=== PATIENT | female | born 1955 | race African-American/Black ===

== ENCOUNTER 2017-08-02 14:32 | Inpatient (IN) | payer MEDICAID ==
[~2017-08-02] VITALS: Ht 160 cm; Wt 72.6 kg
[~2017-08-02 14:32] MED LIST: ALBUTEROL MDI IH; ASPI-986 PO; MONT10TA21 PO
[2017-08-02] MEDS ORDERED: IPRATROPIUM BROMIDE (0.02%) 0.5MG/2.5ML NEB HHN STA (18:34)
[2017-08-02] MEDS ORDERED: ALBUTEROL (0.083%) 2.5MG/3ML NEB HHN STA (18:34)
[2017-08-02 19:08] LABS: HEMATOCRIT. 35.4 % (36.0-48.0); HEMOGLOBIN. 11.3 g/dL (12.0-16.0); MEAN CORPUSCULAR VOLUME 84.3 fL (81.0-99.0); MEAN PLATELET VOLUME 8.8 fl (7.4-10.4); PLATELET 324 x1000/uL (130-400); RED CELL DISTRIBUTION WIDTH 20.1 % (11.6-14.6)
[2017-08-02 19:10] LABS: CHLORIDE 101 mEq/L (98-107)
[2017-08-02 19:16] LABS: CARBON DIOXIDE 35 mEq/L (21-32)
[2017-08-02 19:20] LABS: TROPONIN I < 0.02 ng/mL (0.00-0.04)
[2017-08-02] MEDS ORDERED: METHYLPREDNISOLONE SOD SUCC 125 MG/2 ML VIAL IV STA (19:45)
[2017-08-02] MEDS ORDERED: ALBUTEROL (0.083%) 2.5MG/3ML NEB HHN SCH (20:00)
[2017-08-02 20:50] LABS: PLATELET ESTIMATE NORMAL
[2017-08-02 23:00] VITALS: BP 112/40
[2017-08-02] MEDS ORDERED: ACETAMINOPHEN 325MG TABLET PO PRN (23:00)
[2017-08-02] MEDS ORDERED: HYDROCODONE/ACETAMINOPHEN 5/325MG TABLET PO PRN (23:00)
[2017-08-02] MEDS ORDERED: DOCUSATE SODIUM 100MG CAPSULE PO PRN (23:00)
[2017-08-02] MEDS ORDERED: ONDANSETRON HCL 4MG/2ML VIAL IV PRN (23:00)
[2017-08-02] MEDS ORDERED: POTASSIUM CHLORIDE 20MEQ TABLET SR PO SCH (23:00)
[2017-08-02] MEDS ORDERED: CLONIDINE 0.1MG TABLET PO PRN (23:00)
[2017-08-02] MEDS ORDERED: MAGNESIUM/ALUMINUM HYDROXIDE/SIMETHICONE 30ML UDC PO PRN (23:00)
[2017-08-02 23:46] LABS: CHLORIDE 103 mEq/L (98-107)
[2017-08-02 23:53] LABS: CARBON DIOXIDE 34 mEq/L (21-32)
[2017-08-03] MEDS ORDERED: DEXTROSE 50% WATER 50ML SYRINGE IV PRN (00:30)
[2017-08-03 00:40] LABS: BG BASE EXCESS 7.5 mmol/L (-2.0-2.0); BG CARBOXYHEMOGLOBIN 1.8 % (0.5-1.5); BG DEOXYHEMOGLOBIN 4.2 % (0.0-5.0); BG FRACTION INSPIRED OXYGEN 28; BG METHEMOGLOBIN 0.2 % (0.0-1.5); BG OXYGEN SATURATION 95.7 % (92.0-98.5); BG OXYHEMOGLOBIN 93.8 % (94.0-97.0); BG PCO2 64.1 mmHg (35.0-45.0); BG PH 7.355 (7.350-7.450); BG PO2 86.6 mmHg (75.0-100.0); BG SAMPLE SITE LEFT BRACHIAL; BG TOTAL HEMOGLOBIN 12.2 g/dL (12.0-18.0); BG VENT MODE NASAL CANNULA
[2017-08-03] MEDS: AZITHROMYCIN 500 MG TABLET PO SCH ×2 (01:46→21:39)
[2017-08-03] MEDS: IPRATROPIUM/ALBUTEROL 0.5-3(2.5)MG/3ML NEB INH PRN ×3 (03:10→21:06)
[2017-08-03 04:00] VITALS: BP 118/51
[2017-08-03 04:08] LABS: CLARITY URINE CLEAR (CLEAR); COLOR URINE YELLOW (YELLOW); GLUCOSE URINE 3+ (NEGATIVE); KETONES URINE TRACE (NEGATIVE); LEUKOCYTE ESTERASE URINE NEGATIVE (NEGATIVE); NITRITE URINE NEGATIVE (NEGATIVE); OCCULT BLOOD URINE NEGATIVE (NEGATIVE); PH URINE 6.5 (4.5-8.0); PROTEIN URINE NEGATIVE (NEGATIVE); SPECIFIC GRAVITY URINE 1.042 (1.005-1.030)
[2017-08-03 04:32] LABS: *AMPHETAMINES SCREEN URINE NEGATIVE (NEGATIVE); *BARBITURATES SCREEN URINE NEGATIVE (NEGATIVE); *BENZODIAZEPINES SCREEN URINE NEGATIVE (NEGATIVE); CANNABINOID URINE SCREEN NEGATIVE (NEGATIVE); METHADONE URINE SCREEN NEGATIVE (NEGATIVE); OPIATES URINE SCREEN NEGATIVE (NEGATIVE); PHENCYCLIDINE URINE SCREEN NEGATIVE (NEGATIVE)
[2017-08-03 04:36] LABS: *COCAINE SCREEN URINE PRESUMTIVE POSITIVE (NEGATIVE)
[2017-08-03 06:16] LABS: HEMATOCRIT. 34.2 % (36.0-48.0); HEMOGLOBIN. 10.8 g/dL (12.0-16.0); MEAN CORPUSCULAR HEMOGLOBIN 26.8 pg (28.0-32.0); MEAN CORPUSCULAR VOLUME 84.8 fL (81.0-99.0); MEAN PLATELET VOLUME 8.7 fl (7.4-10.4); PLATELET 300 x1000/uL (130-400); RED BLOOD CELL COUNT 4.04 mill/uL (4.2-5.4); RED CELL DISTRIBUTION WIDTH 20.2 % (11.6-14.6)
[2017-08-03] MEDS: METHYLPREDNISOLONE SOD SUCC 40 MG/ML VIAL IV SCH ×3 (06:55→21:39)
[2017-08-03 07:02] LABS: CREATINE KINASE 87 IU/L (26-192); CREATINE KINASE MB FRACTION 3.8 ng/mL (0.5-3.6); HDL CHOLESTEROL 129 mg/dL (40-59); LDL CHOLESTEROL 79 mg/dL (5-100); TROPONIN I < 0.02 ng/mL (0.00-0.04)
[2017-08-03] MEDS: BLOOD SUGAR DIAGNOSTIC STRIP TEST SCH ×4 (07:05→21:34)
[2017-08-03 08:00] VITALS: BP 112/52
[2017-08-03] MEDS: INSULIN LISPRO 100 UNITS/ML SUBCUT SCH ×4 (08:10→21:00)
[2017-08-03] MEDS: MONTELUKAST SODIUM 10MG TABLET PO SCH (08:50)
[2017-08-03] MEDS: ASPIRIN 81MG EC TABLET PO SCH (08:50)
[2017-08-03] MEDS: ENOXAPARIN 40MG/0.4ML SYR SUBCUT SCH (08:52)
[2017-08-03 12:00] VITALS: BP 113/52
[2017-08-03] MEDS: GUAIFENESIN 200MG/10ML SUGAR FREE UDC PO PRN ×2 (15:03→21:39)
[2017-08-03 15:20] LABS: CREATINE KINASE 63 IU/L (26-192); CREATINE KINASE MB FRACTION 3.2 ng/mL (0.5-3.6); TROPONIN I < 0.02 ng/mL (0.00-0.04)
[2017-08-03 16:00] VITALS: BP 96/68
[2017-08-03 20:04] VITALS: BP 109/43
[2017-08-04] VITALS: BP 116/48
[2017-08-04] MEDS: IPRATROPIUM/ALBUTEROL 0.5-3(2.5)MG/3ML NEB INH PRN (01:20)
[2017-08-04 04:00] VITALS: BP 103/51
[2017-08-04] MEDS: BLOOD SUGAR DIAGNOSTIC STRIP TEST SCH ×2 (05:39→12:40)
[2017-08-04] MEDS: METHYLPREDNISOLONE SOD SUCC 40 MG/ML VIAL IV SCH ×2 (05:42→14:28)
[2017-08-04 08:00] VITALS: BP 108/43
[2017-08-04] MEDS: INSULIN LISPRO 100 UNITS/ML SUBCUT SCH ×2 (08:10→12:55)
[2017-08-04] MEDS: GUAIFENESIN 200MG/10ML SUGAR FREE UDC PO PRN (08:45)
[2017-08-04] MEDS: ASPIRIN 81MG EC TABLET PO SCH (08:45)
[2017-08-04] MEDS: ENOXAPARIN 40MG/0.4ML SYR SUBCUT SCH (08:46)
[2017-08-04] MEDS: MONTELUKAST SODIUM 10MG TABLET PO SCH (09:18)
[2017-08-04 12:00] VITALS: BP 103/58
[2017-08-04 16:00] VITALS: BP 118/47
[2017-08-04 22:59] LABS: PLATELET ESTIMATE NORMAL
== END 2017-08-04 17:01 | disposition home or self-care (01) | DRG 140 ==
LOC: ER 15:11 → 7WST 20:37 → ENRESERV 22:25
PROVIDERS: ADMIT Internal Medicine; ATTEND Internal Medicine
PROC: 5A09357 Assistance with Respiratory Ventilation, Less than 24 Consecutive Hours, Continuous Positive Airway Pressure (ICD-10-PCS; principal; 2017-08-03)
DX: J44.1 Chronic obstructive pulmonary disease with (acute) exacerbation (principal); J96.00 Acute respiratory failure, unspecified whether with hypoxia or hypercapnia; J40 Bronchitis, not specified as acute or chronic; R60.0 Localized edema; Z79.82 Long term (current) use of aspirin; Z79.899 Other long term (current) drug therapy
CPT/HCPCS: 36415; 36600; 71010; 80048; 80061; 80305; 81001; 82375; 82550; 82553; 82805; 82962; 83735; 83880; 84443; 84484; 85025; 85610; 87070; 93005; 93970; 94640; 94664; 96374; 99291; J1650; J1815; J2920; J2930; J7611; J7620

== ENCOUNTER 2017-08-13 20:40 | Inpatient (IN) | payer MEDICAID ==
[~2017-08-13] VITALS: Ht 154.9 cm; Wt 49.4 kg
[2017-08-13] MEDS ORDERED: METHYLPREDNISOLONE SOD SUCC 125 MG/2 ML VIAL IV ONE (21:30)
[2017-08-13] MEDS ORDERED: IPRATROPIUM/ALBUTEROL 0.5-3(2.5)MG/3ML NEB HHN ONE (21:30)
[2017-08-13 21:58] LABS: HEMATOCRIT. 41.3 % (36.0-48.0); HEMOGLOBIN. 12.8 g/dL (12.0-16.0); MEAN CORPUSCULAR HEMOGLOBIN 26.7 pg (28.0-32.0); MEAN CORPUSCULAR VOLUME 85.9 fL (81.0-99.0); PLATELET 314 x1000/uL (130-400); RED CELL DISTRIBUTION WIDTH 20.7 % (11.6-14.6)
[2017-08-13 22:01] LABS: CHLORIDE 101 mEq/L (98-107)
[2017-08-13 22:14] LABS: CARBON DIOXIDE 38 mEq/L (21-32)
[2017-08-13 22:24] LABS: ATYPICAL LYMPHOCYTES 2; PLATELET ESTIMATE NORMAL
[2017-08-14] MEDS ORDERED: IPRATROPIUM BROMIDE (0.02%) 0.5MG/2.5ML NEB HHN STA (01:15)
[2017-08-14] MEDS ORDERED: ALBUTEROL (0.083%) 2.5MG/3ML NEB HHN STA (01:15)
[2017-08-14 06:52] VITALS: BP 128/62
[2017-08-14 08:00] VITALS: BP 110/62
[2017-08-14] MEDS ORDERED: LEVOFLOXACIN 500MG PREMIX 100 ML IV SCH (08:15)
[2017-08-14] MEDS: IPRATROPIUM/ALBUTEROL 0.5-3(2.5)MG/3ML NEB HHN PRN ×2 (08:30→21:27)
[2017-08-14] MEDS: ASPIRIN 81MG TABLET PO SCH (09:34)
[2017-08-14] MEDS: METHYLPREDNISOLONE SOD SUCC 40 MG/ML VIAL IV SCH ×3 (09:35→21:23)
[2017-08-14] MEDS: LEVOFLOXACIN 500MG PREMIX 100 ML IV SCH (11:18)
[2017-08-14] MEDS: IPRATROPIUM/ALBUTEROL 0.5-3(2.5)MG/3ML NEB HHN SCH ×4 (11:39→23:25)
[2017-08-14 12:00] VITALS: BP 142/52
[2017-08-14 16:00] VITALS: BP 116/52
[2017-08-14] MEDS: MONTELUKAST SODIUM 10MG TABLET PO SCH (16:15)
[2017-08-14] MEDS: THIAMINE HCL 100MG TABLET PO SCH (16:15)
[2017-08-14] MEDS: ENOXAPARIN 30MG/0.3ML SYR SUBCUT SCH (16:15)
[2017-08-14] MEDS: FOLIC ACID 1MG TABLET PO SCH (16:15)
[2017-08-14] MEDS: MULTIVITAMINS,THER W-MINERALS TABLET PO SCH (16:15)
[2017-08-14] MEDS: NICOTINE 21MG PATCH TD SCH (17:42)
[2017-08-14 19:19] VITALS: BP 128/60
[2017-08-14] MEDS: BUDESONIDE 0.5MG/2ML NEB HHN SCH (21:27)
[2017-08-15 00:26] VITALS: BP 121/54
[2017-08-15] MEDS: IPRATROPIUM/ALBUTEROL 0.5-3(2.5)MG/3ML NEB HHN SCH ×5 (04:12→20:23)
[2017-08-15 04:40] VITALS: BP 113/59
[2017-08-15] MEDS: METHYLPREDNISOLONE SOD SUCC 40 MG/ML VIAL IV SCH ×3 (06:22→21:56)
[2017-08-15] MEDS: BUDESONIDE 0.5MG/2ML NEB HHN SCH ×2 (07:56→20:23)
[2017-08-15 08:10] VITALS: BP 118/55
[2017-08-15] MEDS: NICOTINE 21MG PATCH TD SCH (09:08)
[2017-08-15] MEDS: THIAMINE HCL 100MG TABLET PO SCH (09:08)
[2017-08-15] MEDS: ASPIRIN 81MG TABLET PO SCH (09:08)
[2017-08-15] MEDS: FOLIC ACID 1MG TABLET PO SCH (09:08)
[2017-08-15] MEDS: MULTIVITAMINS,THER W-MINERALS TABLET PO SCH (09:08)
[2017-08-15] MEDS: GUAIFENESIN 600MG ER TABLET PO SCH ×2 (11:15→21:56)
[2017-08-15] MEDS: LEVOFLOXACIN 500MG PREMIX 100 ML IV SCH (11:15)
[2017-08-15 12:26] VITALS: BP 120/60
[2017-08-15 16:51] VITALS: BP 113/50
[2017-08-15] MEDS: MONTELUKAST SODIUM 10MG TABLET PO SCH (17:56)
[2017-08-15] MEDS: ENOXAPARIN 30MG/0.3ML SYR SUBCUT SCH (17:56)
[2017-08-15 20:00] VITALS: BP 107/57
[2017-08-16] VITALS: BP 139/59
[2017-08-16] MEDS: IPRATROPIUM/ALBUTEROL 0.5-3(2.5)MG/3ML NEB HHN SCH ×6 (00:22→20:09)
[2017-08-16] MEDS: HYDROCODONE/ACETAMINOPHEN 10/325MG TABLET PO PRN ×3 (00:42→21:46)
[2017-08-16 04:00] VITALS: BP 117/53
[2017-08-16] MEDS: METHYLPREDNISOLONE SOD SUCC 40 MG/ML VIAL IV SCH (06:25)
[2017-08-16 07:01] LABS: CARBON DIOXIDE 37 mEq/L (21-32); CHLORIDE 94 mEq/L (98-107)
[2017-08-16 07:18] LABS: HEMATOCRIT 37.8 % (36.0-48.0); HEMOGLOBIN 11.9 g/dL (12.0-16.0); MEAN CORPUSCULAR VOLUME 85.9 fL (81.0-99.0); PLATELET 307 x1000/uL (130-400); RED BLOOD CELL COUNT 4.39 mill/uL (4.2-5.4); RED CELL DISTRIBUTION WIDTH 20.7 % (11.6-14.6)
[2017-08-16 08:00] VITALS: BP 100/71
[2017-08-16] MEDS: BUDESONIDE 0.5MG/2ML NEB HHN SCH ×2 (08:56→20:08)
[2017-08-16] MEDS: FOLIC ACID 1MG TABLET PO SCH (09:32)
[2017-08-16] MEDS: ASPIRIN 81MG TABLET PO SCH (09:32)
[2017-08-16] MEDS: MULTIVITAMINS,THER W-MINERALS TABLET PO SCH (09:32)
[2017-08-16] MEDS: THIAMINE HCL 100MG TABLET PO SCH (09:32)
[2017-08-16] MEDS: GUAIFENESIN 600MG ER TABLET PO SCH ×2 (09:32→21:45)
[2017-08-16] MEDS: NICOTINE 21MG PATCH TD SCH (09:34)
[2017-08-16] MEDS: LEVOFLOXACIN 500MG PREMIX 100 ML IV SCH (10:28)
[2017-08-16 12:00] VITALS: BP 100/67
[2017-08-16 16:00] VITALS: BP 100/62
[2017-08-16] MEDS: MONTELUKAST SODIUM 10MG TABLET PO SCH (16:08)
[2017-08-16] MEDS: GUAIFENESIN 200MG/10ML SUGAR FREE UDC PO PRN ×2 (16:09→21:45)
[2017-08-16] MEDS: ENOXAPARIN 30MG/0.3ML SYR SUBCUT SCH (16:09)
[2017-08-16 20:00] VITALS: BP 118/55
[2017-08-17] VITALS: BP 101/48
[2017-08-17] MEDS: IPRATROPIUM/ALBUTEROL 0.5-3(2.5)MG/3ML NEB HHN SCH ×6 (00:14→19:46)
[2017-08-17] MEDS: GUAIFENESIN 200MG/10ML SUGAR FREE UDC PO PRN ×3 (03:23→20:57)
[2017-08-17 04:00] VITALS: BP 105/51
[2017-08-17 08:00] VITALS: BP 96/36
[2017-08-17] MEDS: BUDESONIDE 0.5MG/2ML NEB HHN SCH (08:32)
[2017-08-17] MEDS: NICOTINE 21MG PATCH TD SCH (08:39)
[2017-08-17] MEDS: MULTIVITAMINS,THER W-MINERALS TABLET PO SCH (08:39)
[2017-08-17] MEDS: FOLIC ACID 1MG TABLET PO SCH (08:39)
[2017-08-17] MEDS: METHYLPREDNISOLONE SOD SUCC 40 MG/ML VIAL IV SCH (08:39)
[2017-08-17] MEDS: THIAMINE HCL 100MG TABLET PO SCH (08:39)
[2017-08-17] MEDS: GUAIFENESIN 600MG ER TABLET PO SCH ×2 (08:39→20:57)
[2017-08-17] MEDS: ASPIRIN 81MG TABLET PO SCH (08:39)
[2017-08-17 12:00] VITALS: BP 108/42
[2017-08-17] MEDS: LEVOFLOXACIN 500MG PREMIX 100 ML IV SCH (14:41)
[2017-08-17 16:00] VITALS: BP 123/52
[2017-08-17] MEDS: ENOXAPARIN 30MG/0.3ML SYR SUBCUT SCH (17:04)
[2017-08-17] MEDS: MONTELUKAST SODIUM 10MG TABLET PO SCH (17:04)
[2017-08-17 20:44] VITALS: BP 126/47
[2017-08-17] MEDS: IPRATROPIUM/ALBUTEROL 0.5-3(2.5)MG/3ML NEB HHN PRN (22:46)
[2017-08-18 00:02] VITALS: BP 104/48
[2017-08-18] MEDS: IPRATROPIUM/ALBUTEROL 0.5-3(2.5)MG/3ML NEB HHN SCH ×6 (00:16→20:50)
[2017-08-18 04:00] VITALS: BP 103/46
[2017-08-18 08:00] VITALS: BP 105/45
[2017-08-18] MEDS: MULTIVITAMINS,THER W-MINERALS TABLET PO SCH (09:29)
[2017-08-18] MEDS: GUAIFENESIN 600MG ER TABLET PO SCH ×2 (09:29→22:20)
[2017-08-18] MEDS: GUAIFENESIN 200MG/10ML SUGAR FREE UDC PO PRN ×2 (09:29→22:20)
[2017-08-18] MEDS: FOLIC ACID 1MG TABLET PO SCH (09:29)
[2017-08-18] MEDS: THIAMINE HCL 100MG TABLET PO SCH (09:29)
[2017-08-18] MEDS: ASPIRIN 81MG TABLET PO SCH (09:29)
[2017-08-18] MEDS: NICOTINE 21MG PATCH TD SCH (09:29)
[2017-08-18] MEDS: METHYLPREDNISOLONE SOD SUCC 40 MG/ML VIAL IV SCH (09:30)
[2017-08-18 12:00] VITALS: BP 110/55
[2017-08-18] MEDS: LEVOFLOXACIN 500MG TABLET PO SCH (12:12)
[2017-08-18 15:46] VITALS: BP 112/46
[2017-08-18] MEDS: MONTELUKAST SODIUM 10MG TABLET PO SCH (16:55)
[2017-08-18] MEDS: ENOXAPARIN 30MG/0.3ML SYR SUBCUT SCH (16:55)
[2017-08-18 20:00] VITALS: BP 112/46
[2017-08-19] VITALS (8 sets, daily range): BP systolic 100–117; BP diastolic 41–54
[2017-08-19] MEDS: IPRATROPIUM/ALBUTEROL 0.5-3(2.5)MG/3ML NEB HHN SCH ×6 (01:02→20:01)
[2017-08-19] MEDS: GUAIFENESIN 200MG/10ML SUGAR FREE UDC PO PRN ×4 (03:10→21:34)
[2017-08-19 06:51] LABS: BASOPHILS % 0.3 % (0.0-2.0); EOSINOPHILS % 0.4 % (0.0-5.0); HEMATOCRIT. 35.4 % (36.0-48.0); HEMOGLOBIN. 11.1 g/dL (12.0-16.0); LYMPHOCYTES % 13.6 % (20.0-50.0); MEAN CORPUSCULAR HEMOGLOBIN 26.9 pg (28.0-32.0); MEAN CORPUSCULAR VOLUME 85.8 fL (81.0-99.0); MONOCYTES % 7.9 % (2.0-8.0); NEUTROPHILS % 77.8 % (40.0-76.0); RED BLOOD CELL COUNT 4.13 mill/uL (4.2-5.4); RED CELL DISTRIBUTION WIDTH 21.4 % (11.6-14.6)
[2017-08-19 07:14] LABS: CARBON DIOXIDE 37 mEq/L (21-32); CHLORIDE 97 mEq/L (98-107)
[2017-08-19] MEDS: METHYLPREDNISOLONE SOD SUCC 40 MG/ML VIAL IV SCH (08:18)
[2017-08-19] MEDS: NICOTINE 21MG PATCH TD SCH (08:18)
[2017-08-19 08:19] LABS: MEAN PLATELET VOLUME 9.4 fl (7.4-10.4); PLATELET 240 x1000/uL (130-400)
[2017-08-19] MEDS: MULTIVITAMINS,THER W-MINERALS TABLET PO SCH (08:19)
[2017-08-19] MEDS: ASPIRIN 81MG TABLET PO SCH (08:19)
[2017-08-19] MEDS: THIAMINE HCL 100MG TABLET PO SCH (08:19)
[2017-08-19] MEDS: FOLIC ACID 1MG TABLET PO SCH (08:19)
[2017-08-19] MEDS: GUAIFENESIN 600MG ER TABLET PO SCH ×2 (08:19→21:34)
[2017-08-19] MEDS: LEVOFLOXACIN 500MG TABLET PO SCH (10:28)
[2017-08-19] MEDS: HYDROCODONE/ACETAMINOPHEN 5/325MG TABLET PO PRN (12:35)
[2017-08-19] MEDS: ENOXAPARIN 30MG/0.3ML SYR SUBCUT SCH (15:51)
[2017-08-19] MEDS: MONTELUKAST SODIUM 10MG TABLET PO SCH (16:59)
[2017-08-20] VITALS: BP 109/51
[2017-08-20] MEDS: IPRATROPIUM/ALBUTEROL 0.5-3(2.5)MG/3ML NEB HHN SCH ×7 (00:24→23:36)
[2017-08-20] MEDS: GUAIFENESIN 200MG/10ML SUGAR FREE UDC PO PRN ×3 (03:05→20:35)
[2017-08-20 04:00] VITALS: BP 109/52
[2017-08-20 08:15] VITALS: BP 99/46
[2017-08-20] MEDS: ASPIRIN 81MG TABLET PO SCH (10:31)
[2017-08-20] MEDS: FOLIC ACID 1MG TABLET PO SCH (10:31)
[2017-08-20] MEDS: METHYLPREDNISOLONE SOD SUCC 40 MG/ML VIAL IV SCH (10:32)
[2017-08-20] MEDS: MULTIVITAMINS,THER W-MINERALS TABLET PO SCH (10:32)
[2017-08-20] MEDS: THIAMINE HCL 100MG TABLET PO SCH (10:32)
[2017-08-20] MEDS: GUAIFENESIN 600MG ER TABLET PO SCH ×2 (10:32→20:35)
[2017-08-20] MEDS: NICOTINE 21MG PATCH TD SCH (10:35)
[2017-08-20] MEDS: LEVOFLOXACIN 500MG TABLET PO SCH (10:40)
[2017-08-20 11:16] VITALS: BP 104/37
[2017-08-20 14:59] LABS: HEMATOCRIT 34.6 % (36.0-48.0); MEAN CORPUSCULAR HEMOGLOBIN 27.4 pg (28.0-32.0); MEAN CORPUSCULAR VOLUME 86.2 fL (81.0-99.0); PLATELET 285 x1000/uL (130-400); RED BLOOD CELL COUNT 4.02 mill/uL (4.2-5.4); RED CELL DISTRIBUTION WIDTH 21.7 % (11.6-14.6)
[2017-08-20 15:50] VITALS: BP 114/58
[2017-08-20] MEDS: MONTELUKAST SODIUM 10MG TABLET PO SCH (17:36)
[2017-08-20 20:00] VITALS: BP 120/50
[2017-08-21] VITALS: BP 99/51
[2017-08-21] MEDS: GUAIFENESIN 200MG/10ML SUGAR FREE UDC PO PRN ×2 (01:05→08:19)
[2017-08-21 04:00] VITALS: BP 100/54
[2017-08-21] MEDS: IPRATROPIUM/ALBUTEROL 0.5-3(2.5)MG/3ML NEB HHN SCH ×3 (04:07→12:04)
[2017-08-21 07:41] VITALS: BP 100/35
[2017-08-21] MEDS: METHYLPREDNISOLONE SOD SUCC 40 MG/ML VIAL IV SCH (08:19)
[2017-08-21] MEDS: NICOTINE 21MG PATCH TD SCH (08:20)
[2017-08-21] MEDS: ASPIRIN 81MG TABLET PO SCH (08:20)
[2017-08-21] MEDS: FOLIC ACID 1MG TABLET PO SCH (08:20)
[2017-08-21] MEDS: ENOXAPARIN 40MG/0.4ML SYR SUBCUT SCH ×2 (08:20→08:31)
[2017-08-21] MEDS: MULTIVITAMINS,THER W-MINERALS TABLET PO SCH (08:20)
[2017-08-21] MEDS: THIAMINE HCL 100MG TABLET PO SCH (08:20)
[2017-08-21] MEDS: HYDROCODONE/ACETAMINOPHEN 5/325MG TABLET PO PRN (08:23)
[2017-08-21] MEDS: GUAIFENESIN 600MG ER TABLET PO SCH (08:36)
[2017-08-21] MEDS ORDERED: PREDNISONE 20MG TABLET PO SCH (09:00)
[2017-08-21 11:45] VITALS: BP 97/47
[2017-08-21] MEDS: LEVOFLOXACIN 500MG TABLET PO SCH (11:48)
[2017-08-21 14:09] VITALS: BP 100/53
[2017-08-21] MEDS: IPRATROPIUM/ALBUTEROL 0.5-3(2.5)MG/3ML NEB HHN PRN (14:34)
[2017-08-21 15:50] VITALS: BP 112/50
== END 2017-08-21 16:15 | disposition home or self-care (01) | DRG 133 ==
LOC: ER 20:40 → 6WST 22:51 → ENRESERV 08-14 05:25
PROVIDERS: ADMIT Internal Medicine; ATTEND Internal Medicine
DX: J96.01 Acute respiratory failure with hypoxia (principal); E43 Unspecified severe protein-calorie malnutrition; J15.1 Pneumonia due to Pseudomonas; Z99.81 Dependence on supplemental oxygen; I48.91 Unspecified atrial fibrillation; J44.1 Chronic obstructive pulmonary disease with (acute) exacerbation; F14.10 Cocaine abuse, uncomplicated; F17.210 Nicotine dependence, cigarettes, uncomplicated; J44.0 Chronic obstructive pulmonary disease with (acute) lower respiratory infection; Z96.659 Presence of unspecified artificial knee joint; Z79.899 Other long term (current) drug therapy; Z68.20 Body mass index [BMI] 20.0-20.9, adult; Z83.3 Family history of diabetes mellitus; Z91.19 Patient's noncompliance with other medical treatment and regimen
CPT/HCPCS: 36415; 71010; 80048; 80053; 84484; 85025; 85027; 87070; 87077; 87186; 93005; 93970; 94640; 94664; 96374; 99291; C1893; J1650; J1956; J2920; J2930; J7050; J7512; J7620; J7626

== ENCOUNTER 2018-11-10 15:43 | Inpatient (IN) | payer MEDICAID ==
[~2018-11-10] VITALS: Ht 134.6 cm; Wt 73.0 kg
[~2018-11-10 15:43] MED LIST changes: -MONT10TA21 PO; +P20 PO
[2018-11-10] MEDS ORDERED: MAGNESIUM 2 G PREMIX 50 ML IV STA (17:51)
[2018-11-10] MEDS ORDERED: METHYLPREDNISOLONE SOD SUCC 125 MG/2 ML VIAL IV STA (17:51)
[2018-11-10] MEDS ORDERED: ALBUTEROL (0.083%) 2.5MG/3ML NEB HHN STA (17:51)
[2018-11-10] MEDS ORDERED: IPRATROPIUM BROMIDE (0.02%) 0.5MG/2.5ML NEB HHN STA (17:51)
[2018-11-10] MEDS ORDERED: FENTANYL CITRATE/PF 50MCG/ML 2ML VIAL IV ONE (18:00)
[2018-11-10] MEDS ORDERED: NITROGLYCERIN OINT 1GM/INCH UDPKT TD ONE (18:00)
[2018-11-10] MEDS ORDERED: ONDANSETRON HCL 4MG/2ML INJ IV ONE (18:00)
[2018-11-10] MEDS ORDERED: ASPIRIN 81MG TABLET PO ONE (18:00)
[2018-11-10 18:06] LABS: BASOPHILS % 1.3 % (0.0-2.0); HEMATOCRIT. 36.2 % (36.0-48.0); HEMOGLOBIN. 11.5 g/dL (12.0-16.0); LYMPHOCYTES % 19.3 % (20.0-50.0); MEAN CORPUSCULAR HEMOGLOBIN 26.3 pg (28.0-32.0); MEAN CORPUSCULAR VOLUME 82.8 fL (81.0-99.0); MEAN PLATELET VOLUME 9.1 fl (7.4-10.4); MONOCYTES % 9.7 % (2.0-8.0); NEUTROPHILS % 63.7 % (40.0-76.0); PLATELET 387 x1000/uL (130-400); RED BLOOD CELL COUNT 4.37 mill/uL (4.2-5.4); RED CELL DISTRIBUTION WIDTH 19.8 % (11.6-14.6)
[2018-11-10 18:08] LABS: CHLORIDE 103 mEq/L (98-107)
[2018-11-10] MEDS ORDERED: POTASSIUM CHLORIDE 20MEQ TABLET SR PO ONE (18:45)
[2018-11-10] MEDS ORDERED: ONDANSETRON HCL 4MG/2ML INJ IV PRN (22:30)
[2018-11-10] MEDS ORDERED: HYDROMORPHONE HCL/PF 2MG/ML CPJ IV PRN (22:30)
[2018-11-11 09:43] VITALS: BP 129/63
[2018-11-11 09:51] VITALS: BP 129/63
[2018-11-11] MEDS ORDERED: BENZONATATE 100MG CAPSULE PO PRN (11:15)
[2018-11-11] MEDS ORDERED: IPRATROPIUM/ALBUTEROL 0.5-3(2.5)MG/3ML NEB HHN PRN (11:15)
[2018-11-11 12:00] VITALS: BP 139/63
[2018-11-11] MEDS: METHYLPREDNISOLONE SOD SUCC 40 MG/ML VIAL IV SCH ×2 (12:09→20:10)
[2018-11-11] MEDS: IPRATROPIUM/ALBUTEROL 0.5-3(2.5)MG/3ML NEB HHN SCH ×3 (12:33→20:13)
[2018-11-11] MEDS ORDERED: TERBUTALINE SULFATE 1MG/ML VIAL SUBCUT SCH (14:15)
[2018-11-11] MEDS ORDERED: ACETAMINOPHEN 325MG TABLET PO PRN (14:45)
[2018-11-11] MEDS: MONTELUKAST SODIUM 10MG TABLET PO SCH (15:59)
[2018-11-11 16:00] VITALS: BP 140/79
[2018-11-11 20:02] VITALS: BP 119/57
[2018-11-11] MEDS: HYDROCODONE/ACETAMINOPHEN 5/325MG TABLET PO PRN (21:43)
[2018-11-12 00:05] VITALS: BP 122/53
[2018-11-12] MEDS: IPRATROPIUM/ALBUTEROL 0.5-3(2.5)MG/3ML NEB HHN SCH ×5 (00:27→19:46)
[2018-11-12] MEDS: HYDROCODONE/ACETAMINOPHEN 5/325MG TABLET PO PRN ×4 (01:32→20:19)
[2018-11-12 04:00] VITALS: BP 125/55
[2018-11-12] MEDS: METHYLPREDNISOLONE SOD SUCC 40 MG/ML VIAL IV SCH ×3 (04:17→20:18)
[2018-11-12 07:45] LABS: BASOPHILS % 0.1 % (0.0-2.0); HEMATOCRIT. 32.8 % (36.0-48.0); HEMOGLOBIN. 10.4 g/dL (12.0-16.0); LYMPHOCYTES % 7.2 % (20.0-50.0); MEAN CORPUSCULAR HEMOGLOBIN 26.4 pg (28.0-32.0); MEAN CORPUSCULAR VOLUME 83.1 fL (81.0-99.0); MEAN PLATELET VOLUME 9.3 fl (7.4-10.4); MONOCYTES % 4.5 % (2.0-8.0); NEUTROPHILS % 88.2 % (40.0-76.0); PLATELET 341 x1000/uL (130-400); RED BLOOD CELL COUNT 3.95 mill/uL (4.2-5.4)
[2018-11-12 08:00] VITALS: BP 126/62
[2018-11-12 09:04] LABS: CHLORIDE 101 mEq/L (98-107)
[2018-11-12 12:00] VITALS: BP 163/58
[2018-11-12 16:00] VITALS: BP 115/52
[2018-11-12] MEDS: MONTELUKAST SODIUM 10MG TABLET PO SCH (18:09)
[2018-11-12 20:00] VITALS: BP 125/63
[2018-11-12] MEDS: GUAIFENESIN 600MG ER TABLET PO SCH (20:19)
[2018-11-12 21:38] LABS: CLARITY URINE CLEAR (CLEAR); COLOR URINE YELLOW (YELLOW); KETONES URINE NEGATIVE (NEGATIVE); LEUKOCYTE ESTERASE URINE NEGATIVE (NEGATIVE); NITRITE URINE NEGATIVE (NEGATIVE); OCCULT BLOOD URINE NEGATIVE (NEGATIVE); PH URINE 6.5 (4.5-8.0); PROTEIN URINE NEGATIVE (NEGATIVE); SPECIFIC GRAVITY URINE 1.024 (1.005-1.030); UROBILINOGEN URINE 0.2 E.U./dL (0.2-1.0)
[2018-11-12 22:33] LABS: *AMPHETAMINES SCREEN URINE NEGATIVE (NEGATIVE); *BARBITURATES SCREEN URINE NEGATIVE (NEGATIVE)
[2018-11-12 22:34] LABS: *BENZODIAZEPINES SCREEN URINE NEGATIVE (NEGATIVE); *COCAINE SCREEN URINE NEGATIVE (NEGATIVE)
[2018-11-12 22:35] LABS: METHADONE URINE SCREEN NEGATIVE (NEGATIVE); OPIATES URINE SCREEN PRESUMTIVE POSITIVE (NEGATIVE); PHENCYCLIDINE URINE SCREEN NEGATIVE (NEGATIVE)
[2018-11-12 22:41] LABS: CANNABINOID URINE SCREEN NEGATIVE (NEGATIVE)
[2018-11-12] MEDS: HYDROMORPHONE HCL/PF 2MG/ML CPJ IV PRN (23:12)
[2018-11-13] VITALS: BP 121/59
[2018-11-13] MEDS: IPRATROPIUM/ALBUTEROL 0.5-3(2.5)MG/3ML NEB HHN SCH ×6 (00:01→20:30)
[2018-11-13] MEDS: HYDROCODONE/ACETAMINOPHEN 5/325MG TABLET PO PRN ×3 (02:05→17:26)
[2018-11-13 04:00] VITALS: BP 121/55
[2018-11-13] MEDS: METHYLPREDNISOLONE SOD SUCC 40 MG/ML VIAL IV SCH ×3 (04:46→20:32)
[2018-11-13] MEDS: HYDROMORPHONE HCL/PF 2MG/ML CPJ IV PRN ×3 (04:46→20:33)
[2018-11-13 07:52] VITALS: BP 135/59
[2018-11-13] MEDS: GUAIFENESIN 600MG ER TABLET PO SCH ×2 (08:48→20:33)
[2018-11-13 12:00] VITALS: BP 100/68
[2018-11-13] MEDS: DIPHENHYDRAMINE 50MG/ML VIAL IV PRN ×2 (13:55→20:33)
[2018-11-13 16:00] VITALS: BP 111/63
[2018-11-13] MEDS: MONTELUKAST SODIUM 10MG TABLET PO SCH (17:25)
[2018-11-13 20:00] VITALS: BP 127/57
[2018-11-14] VITALS: BP 122/61
[2018-11-14] MEDS: IPRATROPIUM/ALBUTEROL 0.5-3(2.5)MG/3ML NEB HHN SCH ×6 (00:03→20:45)
[2018-11-14] MEDS: DIPHENHYDRAMINE 50MG/ML VIAL IV PRN ×4 (02:40→23:11)
[2018-11-14] MEDS: HYDROCODONE/ACETAMINOPHEN 5/325MG TABLET PO PRN ×3 (02:41→20:14)
[2018-11-14 04:06] VITALS: BP 136/63
[2018-11-14] MEDS: METHYLPREDNISOLONE SOD SUCC 40 MG/ML VIAL IV SCH ×3 (04:58→20:12)
[2018-11-14 08:20] VITALS: BP 119/58
[2018-11-14] MEDS: GUAIFENESIN 600MG ER TABLET PO SCH ×2 (08:42→20:12)
[2018-11-14 12:00] VITALS: BP 141/66
[2018-11-14 15:44] VITALS: BP 131/56
[2018-11-14] MEDS: MONTELUKAST SODIUM 10MG TABLET PO SCH (17:11)
[2018-11-14 20:00] VITALS: BP 127/51
[2018-11-15] VITALS (7 sets, daily range): BP systolic 92–142; BP diastolic 46–64
[2018-11-15] MEDS: IPRATROPIUM/ALBUTEROL 0.5-3(2.5)MG/3ML NEB HHN SCH ×6 (00:20→20:34)
[2018-11-15] MEDS: METHYLPREDNISOLONE SOD SUCC 40 MG/ML VIAL IV SCH ×3 (04:04→16:22)
[2018-11-15] MEDS: DIPHENHYDRAMINE 50MG/ML VIAL IV PRN ×3 (09:17→23:22)
[2018-11-15] MEDS: HYDROCODONE/ACETAMINOPHEN 5/325MG TABLET PO PRN ×3 (09:18→20:50)
[2018-11-15] MEDS: GUAIFENESIN 600MG ER TABLET PO SCH ×2 (09:23→20:49)
[2018-11-15] MEDS ORDERED: TERBUTALINE SULFATE 1MG/ML VIAL SUBCUT NR (15:45)
[2018-11-15] MEDS: MONTELUKAST SODIUM 10MG TABLET PO SCH (16:22)
[2018-11-16] VITALS (7 sets, daily range): BP systolic 101–130; BP diastolic 40–56
[2018-11-16] MEDS: HYDROCODONE/ACETAMINOPHEN 5/325MG TABLET PO PRN ×2 (03:04→14:28)
[2018-11-16] MEDS: IPRATROPIUM/ALBUTEROL 0.5-3(2.5)MG/3ML NEB HHN SCH ×6 (04:00→20:47)
[2018-11-16] MEDS: DIPHENHYDRAMINE 50MG/ML VIAL IV PRN ×3 (05:27→20:21)
[2018-11-16 06:27] LABS: BASOPHILS % 0.1 % (0.0-2.0); EOSINOPHILS % 0.1 % (0.0-5.0); HEMATOCRIT. 33.7 % (36.0-48.0); HEMOGLOBIN. 10.6 g/dL (12.0-16.0); LYMPHOCYTES % 9.5 % (20.0-50.0); MEAN CORPUSCULAR HEMOGLOBIN 26.2 pg (28.0-32.0); MEAN CORPUSCULAR VOLUME 82.8 fL (81.0-99.0); MEAN PLATELET VOLUME 10.2 fl (7.4-10.4); MONOCYTES % 8.1 % (2.0-8.0); NEUTROPHILS % 82.2 % (40.0-76.0); PLATELET 343 x1000/uL (130-400); RED BLOOD CELL COUNT 4.07 mill/uL (4.2-5.4); RED CELL DISTRIBUTION WIDTH 20.5 % (11.6-14.6)
[2018-11-16] MEDS: GUAIFENESIN 600MG ER TABLET PO SCH ×2 (08:00→20:21)
[2018-11-16] MEDS: METHYLPREDNISOLONE SOD SUCC 40 MG/ML VIAL IV SCH ×2 (08:00→20:21)
[2018-11-16 10:43] LABS: CHLORIDE 98 mEq/L (98-107)
[2018-11-16] MEDS: MONTELUKAST SODIUM 10MG TABLET PO SCH (16:44)
[2018-11-17] MEDS: IPRATROPIUM/ALBUTEROL 0.5-3(2.5)MG/3ML NEB HHN SCH ×4 (00:46→13:10)
[2018-11-17 04:00] VITALS: BP 104/45
[2018-11-17 08:00] VITALS: BP 117/54
[2018-11-17] MEDS: METHYLPREDNISOLONE SOD SUCC 40 MG/ML VIAL IV SCH (08:49)
[2018-11-17] MEDS: GUAIFENESIN 600MG ER TABLET PO SCH (08:49)
[2018-11-17] MEDS: DIPHENHYDRAMINE 50MG/ML VIAL IV PRN (08:53)
[2018-11-17 09:48] VITALS: BP_SYST 118; BP_SYST 124; BP_DIAS 47; BP_DIAS 61
[2018-11-17 12:00] VITALS: BP 124/47
== END 2018-11-17 14:50 | disposition home or self-care (01) | DRG 133 ==
LOC: ER 15:43 → 7WST 18:37 → EDBEDREQ 18:40 → EDBEDREQTM 18:40 → ENRESERV 11-11 07:36
PROVIDERS: ADMIT Internal Medicine; ATTEND Internal Medicine
DX: J96.20 Acute and chronic respiratory failure, unspecified whether with hypoxia or hypercapnia (principal); J44.1 Chronic obstructive pulmonary disease with (acute) exacerbation; B02.9 Zoster without complications; E44.1 Mild protein-calorie malnutrition; I48.91 Unspecified atrial fibrillation; Z99.81 Dependence on supplemental oxygen; E87.6 Hypokalemia; D64.9 Anemia, unspecified; F17.210 Nicotine dependence, cigarettes, uncomplicated; Z96.659 Presence of unspecified artificial knee joint; E66.9 Obesity, unspecified; J20.9 Acute bronchitis, unspecified; Z68.41 Body mass index [BMI] 40.0-44.9, adult; Z79.899 Other long term (current) drug therapy; Z79.82 Long term (current) use of aspirin; Z83.3 Family history of diabetes mellitus
CPT/HCPCS: 36415; 71045; 80048; 80198; 80305; 83880; 84484; 87804; 93005; 94640; 96365; 96375; 99291; C1893; J1170; J1200; J2405; J2920; J2930; J3010; J3105; J3475; J7050; J7611; J7620

== ENCOUNTER 2018-12-01 16:07 | Inpatient (IN) | payer MEDICAID ==
[~2018-12-01] VITALS: Ht 152.4 cm; Wt 69.0 kg
[~2018-12-01 16:07] MED LIST changes: -ASPI-986 PO; -P20 PO
[2018-12-01] MEDS ORDERED: ONDANSETRON HCL 4MG/2ML INJ IV STA (16:33)
[2018-12-01] MEDS ORDERED: METHYLPREDNISOLONE SOD SUCC 125 MG/2 ML VIAL IV STA (16:33)
[2018-12-01] MEDS ORDERED: MAGNESIUM 2 G PREMIX 50 ML IV ONE (16:45)
[2018-12-01] MEDS ORDERED: LEVOFLOXACIN 750MG PREMIX 150 ML IV ONE (16:45)
[2018-12-01] MEDS ORDERED: MORPHINE SULFATE 10 MG/ML CPJ IV ONE (16:45)
[2018-12-01] MEDS ORDERED: IPRATROPIUM/ALBUTEROL 0.5-3(2.5)MG/3ML NEB HHN ONE (17:00)
[2018-12-01 17:04] LABS: BG BASE EXCESS 4.9 mmol/L (-2.0-2.0); BG CARBOXYHEMOGLOBIN 0.7 % (0.5-1.5); BG DEOXYHEMOGLOBIN 4.2 % (0.0-5.0); BG FRACTION INSPIRED OXYGEN 28; BG HCO3 ACT 32.4 mmol/L (22.0-26.0); BG OXYGEN SATURATION 95.8 % (92.0-98.5); BG OXYHEMOGLOBIN 95.1 % (94.0-97.0); BG PCO2 63.8 mmHg (35.0-45.0); BG PH 7.324 (7.350-7.450); BG SAMPLE SITE RIGHT BRACHIAL; BG TOTAL HEMOGLOBIN 11.4 g/dL (12.0-18.0); BG VENT MODE NASAL CANNULA
[2018-12-01 17:19] LABS: HEMATOCRIT. 35.8 % (36.0-48.0); HEMOGLOBIN. 11.3 g/dL (12.0-16.0); MEAN CORPUSCULAR HEMOGLOBIN 26.5 pg (28.0-32.0); MEAN CORPUSCULAR VOLUME 83.6 fL (81.0-99.0); PLATELET 224 x1000/uL (130-400); RED BLOOD CELL COUNT 4.28 mill/uL (4.2-5.4); RED CELL DISTRIBUTION WIDTH 20.9 % (11.6-14.6)
[2018-12-01 17:20] LABS: CHLORIDE 104 mEq/L (98-107)
[2018-12-01 17:24] LABS: ETHANOL BLOOD < 10 mg/dL
[2018-12-01 17:25] LABS: PROTHROMBIN TIME 9.6 sec (9.1-11.1)
[2018-12-01 18:25] LABS: *AMPHETAMINES SCREEN URINE NEGATIVE (NEGATIVE); *BARBITURATES SCREEN URINE NEGATIVE (NEGATIVE); *BENZODIAZEPINES SCREEN URINE NEGATIVE (NEGATIVE); *COCAINE SCREEN URINE NEGATIVE (NEGATIVE); METHADONE URINE SCREEN NEGATIVE (NEGATIVE); OPIATES URINE SCREEN NEGATIVE (NEGATIVE)
[2018-12-01 18:26] LABS: CANNABINOID URINE SCREEN NEGATIVE (NEGATIVE); PHENCYCLIDINE URINE SCREEN NEGATIVE (NEGATIVE)
[2018-12-01 19:05] LABS: PLATELET ESTIMATE NORMAL
[2018-12-01] MEDS ORDERED: ACETAMINOPHEN 325MG TABLET PO PRN (20:00)
[2018-12-01] MEDS ORDERED: ONDANSETRON HCL 4MG/2ML INJ IV PRN (20:00)
[2018-12-01] MEDS ORDERED: CLONIDINE 0.1MG TABLET PO PRN (20:00)
[2018-12-01] MEDS ORDERED: MAGNESIUM/ALUMINUM HYDROXIDE/SIMETHICONE 30ML UDC PO PRN (20:00)
[2018-12-01] MEDS ORDERED: NA PHOS,M-B/NA PHOS,DI-BA ENEMA 118ML PR PRN (20:00)
[2018-12-01] MEDS ORDERED: LEVOFLOXACIN 500MG PREMIX 100 ML IV SCH (20:00)
[2018-12-01 20:47] LABS: BG BASE EXCESS 3.4 mmol/L (-2.0-2.0); BG BILEVEL POS AIRWAY PRESSURE 20/8; BG CARBOXYHEMOGLOBIN 0.3 % (0.5-1.5); BG DEOXYHEMOGLOBIN 0.7 % (0.0-5.0); BG FRACTION INSPIRED OXYGEN 60; BG HCO3 ACT 31.2 mmol/L (22.0-26.0); BG METHEMOGLOBIN 0.5 % (0.0-1.5); BG OXYGEN SATURATION 99.3 % (92.0-98.5); BG OXYHEMOGLOBIN 98.5 % (94.0-97.0); BG PCO2 62.8 mmHg (35.0-45.0); BG PH 7.314 (7.350-7.450); BG PO2 294.8 mmHg (75.0-100.0); BG SAMPLE SITE LEFT RADIAL; BG TOTAL HEMOGLOBIN 12.7 g/dL (12.0-18.0); BG VENT MODE MASK - BIPAP
[2018-12-01 21:30] VITALS: BP 142/85
[2018-12-01 22:00] VITALS: BP 137/83
[2018-12-01] MEDS: MORPHINE SULFATE 10MG/5ML ORAL SOLN UDC PO PRN (22:53)
[2018-12-01] MEDS: GUAIFENESIN 200MG/10ML SUGAR FREE UDC PO PRN (23:18)
[2018-12-01] MEDS: LORAZEPAM 2MG/ML CPJ IV PRN (23:57)
[2018-12-02] VITALS (11 sets, daily range): BP systolic 115–156; BP diastolic 55–90
[2018-12-02] MEDS: METHYLPREDNISOLONE SOD SUCC 125 MG/2 ML VIAL IV SCH ×4 (00:10→17:43)
[2018-12-02] MEDS: HYDROCODONE/ACETAMINOPHEN 10/325MG TABLET PO PRN ×3 (00:52→18:56)
[2018-12-02] MEDS: DIPHENHYDRAMINE 50MG/ML VIAL IV PRN ×2 (01:18→22:17)
[2018-12-02 01:42] LABS: CHLORIDE 102 mEq/L (98-107)
[2018-12-02] MEDS: MORPHINE SULFATE 10MG/5ML ORAL SOLN UDC PO PRN (03:53)
[2018-12-02 05:59] LABS: CHLORIDE 100 mEq/L (98-107); HEMATOCRIT. 34.8 % (36.0-48.0); HEMOGLOBIN. 10.9 g/dL (12.0-16.0); MEAN CORPUSCULAR HEMOGLOBIN 26.4 pg (28.0-32.0); MEAN CORPUSCULAR VOLUME 84.4 fL (81.0-99.0); PLATELET 210 x1000/uL (130-400); RED BLOOD CELL COUNT 4.12 mill/uL (4.2-5.4); RED CELL DISTRIBUTION WIDTH 20.5 % (11.6-14.6)
[2018-12-02 06:20] LABS: LDL CHOLESTEROL 111 mg/dL (5-100)
[2018-12-02 06:22] LABS: T4 FREE 0.72 ng/dL (0.76-1.46)
[2018-12-02 06:23] LABS: HDL CHOLESTEROL 112 mg/dL (40-59)
[2018-12-02] MEDS: ENOXAPARIN 40MG/0.4ML SYR SUBCUT SCH (09:00)
[2018-12-02] MEDS: ASPIRIN 81MG EC TABLET PO SCH (09:07)
[2018-12-02 09:56] LABS: BG CARBOXYHEMOGLOBIN 0.4 % (0.5-1.5); BG DEOXYHEMOGLOBIN 0.3 % (0.0-5.0); BG FRACTION INSPIRED OXYGEN 100; BG HCO3 ACT 36.5 mmol/L (22.0-26.0); BG METHEMOGLOBIN 0.3 % (0.0-1.5); BG OXYGEN SATURATION 99.7 % (92.0-98.5); BG PCO2 91.5 mmHg (35.0-45.0); BG PH 7.219 (7.350-7.450); BG PO2 452.7 mmHg (75.0-100.0); BG SAMPLE SITE RIGHT RADIAL; BG TOTAL HEMOGLOBIN 11.9 g/dL (12.0-18.0); BG VENT MODE MASK - NRB
[2018-12-02] MEDS: AMLODIPINE 5MG TABLET PO SCH (12:17)
[2018-12-02 12:26] LABS: BG BASE EXCESS 9.9 mmol/L (-2.0-2.0); BG CARBOXYHEMOGLOBIN 0.5 % (0.5-1.5); BG DEOXYHEMOGLOBIN 4.1 % (0.0-5.0); BG FRACTION INSPIRED OXYGEN 28; BG HCO3 ACT 41.3 mmol/L (22.0-26.0); BG METHEMOGLOBIN 0.1 % (0.0-1.5); BG OXYGEN SATURATION 95.9 % (92.0-98.5); BG OXYHEMOGLOBIN 95.3 % (94.0-97.0); BG PCO2 106.3 mmHg (35.0-45.0); BG PH 7.207 (7.350-7.450); BG PO2 91.1 mmHg (75.0-100.0); BG SAMPLE SITE RIGHT RADIAL; BG TOTAL HEMOGLOBIN 11.5 g/dL (12.0-18.0); BG VENT MODE NASAL CANNULA
[2018-12-02] MEDS ORDERED: DEXTROSE 50% WATER 50ML SYRINGE IV PRN (14:15)
[2018-12-02 14:48] LABS: PLATELET ESTIMATE NORMAL
[2018-12-02 16:21] LABS: BG BILEVEL POS AIRWAY PRESSURE 20/5; BG CARBOXYHEMOGLOBIN 0.6 % (0.5-1.5); BG DEOXYHEMOGLOBIN 1.5 % (0.0-5.0); BG FRACTION INSPIRED OXYGEN 40; BG HCO3 ACT 36.1 mmol/L (22.0-26.0); BG METHEMOGLOBIN 0.3 % (0.0-1.5); BG OXYGEN SATURATION 98.5 % (92.0-98.5); BG OXYHEMOGLOBIN 97.6 % (94.0-97.0); BG PCO2 76.7 mmHg (35.0-45.0); BG PO2 132.5 mmHg (75.0-100.0); BG SAMPLE SITE RIGHT RADIAL; BG TOTAL HEMOGLOBIN 12.4 g/dL (12.0-18.0); BG VENT MODE MASK - BIPAP; BG VENT RATE 24 set
[2018-12-02] MEDS: IPRATROPIUM/ALBUTEROL 0.5-3(2.5)MG/3ML NEB HHN SCH ×2 (16:43→21:37)
[2018-12-02] MEDS: BLOOD SUGAR DIAGNOSTIC STRIP TEST SCH ×2 (17:44→20:37)
[2018-12-02] MEDS: LEVOFLOXACIN 500MG PREMIX 100 ML IV SCH (17:44)
[2018-12-02] MEDS: INSULIN LISPRO 100 UNITS/ML SUBCUT SCH ×2 (17:44→20:38)
[2018-12-02] MEDS: GUAIFENESIN 200MG/10ML SUGAR FREE UDC PO PRN (20:34)
[2018-12-03] VITALS (12 sets, daily range): BP systolic 125–150; BP diastolic 54–82
[2018-12-03] MEDS: IPRATROPIUM/ALBUTEROL 0.5-3(2.5)MG/3ML NEB HHN SCH ×6 (01:09→21:24)
[2018-12-03] MEDS: METHYLPREDNISOLONE SOD SUCC 125 MG/2 ML VIAL IV SCH ×4 (01:49→20:06)
[2018-12-03] MEDS: LORAZEPAM 2MG/ML CPJ IV PRN (06:48)
[2018-12-03] MEDS: BLOOD SUGAR DIAGNOSTIC STRIP TEST SCH ×4 (07:40→21:59)
[2018-12-03] MEDS: INSULIN LISPRO 100 UNITS/ML SUBCUT SCH ×4 (07:41→21:00)
[2018-12-03 08:13] LABS: BASOPHILS % 0.1 % (0.0-2.0); HEMOGLOBIN. 10.9 g/dL (12.0-16.0); LYMPHOCYTES % 8.2 % (20.0-50.0); MEAN CORPUSCULAR HEMOGLOBIN 26.3 pg (28.0-32.0); MEAN CORPUSCULAR VOLUME 84.7 fL (81.0-99.0); MEAN PLATELET VOLUME 8.9 fl (7.4-10.4); MONOCYTES % 8.4 % (2.0-8.0); NEUTROPHILS % 83.3 % (40.0-76.0); PLATELET 198 x1000/uL (130-400); RED BLOOD CELL COUNT 4.14 mill/uL (4.2-5.4); RED CELL DISTRIBUTION WIDTH 20.5 % (11.6-14.6)
[2018-12-03] MEDS: AMLODIPINE 5MG TABLET PO SCH ×2 (09:00→17:20)
[2018-12-03] MEDS: ASPIRIN 81MG EC TABLET PO SCH (09:01)
[2018-12-03] MEDS: DOCUSATE SODIUM 100MG CAPSULE PO PRN (09:01)
[2018-12-03] MEDS: ENOXAPARIN 40MG/0.4ML SYR SUBCUT SCH (09:02)
[2018-12-03] MEDS: HYDROCODONE/ACETAMINOPHEN 10/325MG TABLET PO PRN (09:10)
[2018-12-03 11:02] LABS: CHLORIDE 95 mEq/L (98-107)
[2018-12-03 11:08] LABS: LDL CHOLESTEROL 118 mg/dL (5-100)
[2018-12-03 11:09] LABS: CREATINE KINASE 28 IU/L (26-192); CREATINE KINASE MB FRACTION 1.4 ng/mL (0.5-3.6); HDL CHOLESTEROL 107 mg/dL (40-59)
[2018-12-03] MEDS ORDERED: TERBUTALINE SULFATE 1MG/ML VIAL SUBCUT NR (14:30)
[2018-12-03 14:51] LABS: BG CARBOXYHEMOGLOBIN 0.4 % (0.5-1.5); BG DEOXYHEMOGLOBIN 4.5 % (0.0-5.0); BG FRACTION INSPIRED OXYGEN 32; BG HCO3 ACT 42.8 mmol/L (22.0-26.0); BG METHEMOGLOBIN 0.3 % (0.0-1.5); BG OXYGEN SATURATION 95.5 % (92.0-98.5); BG OXYHEMOGLOBIN 94.8 % (94.0-97.0); BG PCO2 80.8 mmHg (35.0-45.0); BG PH 7.342 (7.350-7.450); BG PO2 81.2 mmHg (75.0-100.0); BG SAMPLE SITE RIGHT BRACHIAL; BG TOTAL HEMOGLOBIN 11.3 g/dL (12.0-18.0); BG VENT MODE NASAL CANNULA
[2018-12-03] MEDS: DIPHENHYDRAMINE 50MG/ML VIAL IV PRN ×2 (15:44→21:46)
[2018-12-03] MEDS: LEVOFLOXACIN 500MG PREMIX 100 ML IV SCH (17:21)
[2018-12-03] MEDS: GUAIFENESIN 200MG/10ML SUGAR FREE UDC PO PRN (19:54)
[2018-12-04] VITALS (12 sets, daily range): BP systolic 103–140; BP diastolic 57–75
[2018-12-04] MEDS: IPRATROPIUM/ALBUTEROL 0.5-3(2.5)MG/3ML NEB HHN SCH ×7 (00:08→20:30)
[2018-12-04] MEDS: METHYLPREDNISOLONE SOD SUCC 125 MG/2 ML VIAL IV SCH ×5 (00:16→23:29)
[2018-12-04] MEDS: GUAIFENESIN 200MG/10ML SUGAR FREE UDC PO PRN ×3 (02:16→21:22)
[2018-12-04 07:15] LABS: HEMOGLOBIN. 10.7 g/dL (12.0-16.0); MEAN CORPUSCULAR HEMOGLOBIN 26.4 pg (28.0-32.0); MEAN CORPUSCULAR VOLUME 84.4 fL (81.0-99.0); MEAN PLATELET VOLUME 8.9 fl (7.4-10.4); PLATELET 219 x1000/uL (130-400); RED BLOOD CELL COUNT 4.03 mill/uL (4.2-5.4); RED CELL DISTRIBUTION WIDTH 20.4 % (11.6-14.6)
[2018-12-04] MEDS: BLOOD SUGAR DIAGNOSTIC STRIP TEST SCH ×4 (07:30→20:05)
[2018-12-04 07:53] LABS: CHLORIDE 96 mEq/L (98-107)
[2018-12-04] MEDS: INSULIN LISPRO 100 UNITS/ML SUBCUT SCH ×4 (08:00→20:44)
[2018-12-04] MEDS: ENOXAPARIN 40MG/0.4ML SYR SUBCUT SCH (08:40)
[2018-12-04] MEDS: ASPIRIN 81MG EC TABLET PO SCH (08:40)
[2018-12-04] MEDS: AMLODIPINE 5MG TABLET PO SCH ×2 (08:42→17:48)
[2018-12-04] MEDS: DOCUSATE SODIUM 100MG CAPSULE PO PRN (08:45)
[2018-12-04 10:49] LABS: BG BASE EXCESS 15.7 mmol/L (-2.0-2.0); BG CARBOXYHEMOGLOBIN 0.2 % (0.5-1.5); BG DEOXYHEMOGLOBIN 3.9 % (0.0-5.0); BG FRACTION INSPIRED OXYGEN 32; BG HCO3 ACT 44.4 mmol/L (22.0-26.0); BG METHEMOGLOBIN 0.3 % (0.0-1.5); BG OXYGEN SATURATION 96.1 % (92.0-98.5); BG OXYHEMOGLOBIN 95.6 % (94.0-97.0); BG PCO2 80.1 mmHg (35.0-45.0); BG PH 7.362 (7.350-7.450); BG PO2 88.6 mmHg (75.0-100.0); BG SAMPLE SITE RIGHT BRACHIAL; BG TOTAL HEMOGLOBIN 11.4 g/dL (12.0-18.0); BG VENT MODE NASAL CANNULA
[2018-12-04 13:00] LABS: ATYPICAL LYMPHOCYTES 4
[2018-12-04 13:01] LABS: PLATELET ESTIMATE NORMAL
[2018-12-04] MEDS: IPRATROPIUM/ALBUTEROL 0.5-3(2.5)MG/3ML NEB INH PRN ×2 (14:14→21:08)
[2018-12-04] MEDS: LEVOFLOXACIN 500MG PREMIX 100 ML IV SCH (17:48)
[2018-12-04] MEDS: DIPHENHYDRAMINE 50MG/ML VIAL IV PRN ×2 (17:50→23:31)
[2018-12-04] MEDS: FLUTICASONE PROPIONATE 50MCG/SPRAY BOTTLE BOTHNSTRLS SCH (20:05)
[2018-12-04] MEDS: HYDROCODONE/ACETAMINOPHEN 10/325MG TABLET PO PRN (21:23)
[2018-12-04] MEDS: THROAT LOZENGES-BENZOCAINE/MENTH/CETYLPYRD CL LOZENGES MM PRN (23:23)
[2018-12-05] VITALS (12 sets, daily range): BP systolic 103–138; BP diastolic 55–66
[2018-12-05] MEDS: ACETYLCYSTEINE 100MG/ML 10% VIAL 4ML INH SCH ×3 (00:30→11:55)
[2018-12-05] MEDS: IPRATROPIUM/ALBUTEROL 0.5-3(2.5)MG/3ML NEB HHN SCH ×6 (00:30→20:47)
[2018-12-05] MEDS: HYDROCODONE/ACETAMINOPHEN 10/325MG TABLET PO PRN (04:27)
[2018-12-05] MEDS: METHYLPREDNISOLONE SOD SUCC 125 MG/2 ML VIAL IV SCH ×4 (05:01→23:59)
[2018-12-05] MEDS: BLOOD SUGAR DIAGNOSTIC STRIP TEST SCH ×4 (07:30→20:05)
[2018-12-05] MEDS: THROAT LOZENGES-BENZOCAINE/MENTH/CETYLPYRD CL LOZENGES MM PRN ×3 (07:39→20:06)
[2018-12-05] MEDS: INSULIN LISPRO 100 UNITS/ML SUBCUT SCH ×4 (08:00→20:26)
[2018-12-05] MEDS: ASPIRIN 81MG EC TABLET PO SCH (08:46)
[2018-12-05] MEDS: ENOXAPARIN 40MG/0.4ML SYR SUBCUT SCH (08:46)
[2018-12-05] MEDS: AMLODIPINE 5MG TABLET PO SCH ×2 (08:48→17:48)
[2018-12-05] MEDS: FLUTICASONE PROPIONATE 50MCG/SPRAY BOTTLE BOTHNSTRLS SCH ×2 (08:48→20:04)
[2018-12-05] MEDS: DIPHENHYDRAMINE 50MG/ML VIAL IV PRN ×2 (14:23→21:28)
[2018-12-05] MEDS ORDERED: TERBUTALINE SULFATE 1MG/ML VIAL SUBCUT NR (15:30)
[2018-12-05] MEDS: LEVOFLOXACIN 500MG PREMIX 100 ML IV SCH (17:48)
[2018-12-05] MEDS: OSELTAMIVIR 75MG CAPSULE PO SCH (20:04)
[2018-12-05] MEDS: GUAIFENESIN 200MG/10ML SUGAR FREE UDC PO PRN (21:32)
[2018-12-06] VITALS (12 sets, daily range): BP systolic 107–130; BP diastolic 55–76
[2018-12-06] MEDS: IPRATROPIUM/ALBUTEROL 0.5-3(2.5)MG/3ML NEB HHN SCH ×6 (00:30→20:36)
[2018-12-06] MEDS: GUAIFENESIN 200MG/10ML SUGAR FREE UDC PO PRN ×2 (02:16→13:07)
[2018-12-06] MEDS: DIPHENHYDRAMINE 50MG/ML VIAL IV PRN ×3 (02:21→20:50)
[2018-12-06] MEDS: METHYLPREDNISOLONE SOD SUCC 125 MG/2 ML VIAL IV SCH ×3 (06:13→17:39)
[2018-12-06 07:11] LABS: HEMATOCRIT. 34.8 % (36.0-48.0); HEMOGLOBIN. 10.9 g/dL (12.0-16.0); MEAN CORPUSCULAR HEMOGLOBIN 26.3 pg (28.0-32.0); PLATELET 258 x1000/uL (130-400); RED BLOOD CELL COUNT 4.15 mill/uL (4.2-5.4)
[2018-12-06 07:29] LABS: CHLORIDE 97 mEq/L (98-107)
[2018-12-06] MEDS: BLOOD SUGAR DIAGNOSTIC STRIP TEST SCH ×4 (08:16→21:00)
[2018-12-06] MEDS: OSELTAMIVIR 75MG CAPSULE PO SCH ×2 (08:17→20:50)
[2018-12-06] MEDS: ENOXAPARIN 40MG/0.4ML SYR SUBCUT SCH (08:17)
[2018-12-06] MEDS: ASPIRIN 81MG EC TABLET PO SCH (08:19)
[2018-12-06] MEDS: AMLODIPINE 5MG TABLET PO SCH ×2 (08:19→17:00)
[2018-12-06] MEDS: INSULIN LISPRO 100 UNITS/ML SUBCUT SCH ×4 (08:20→21:00)
[2018-12-06] MEDS: FLUTICASONE PROPIONATE 50MCG/SPRAY BOTTLE BOTHNSTRLS SCH ×2 (08:22→20:50)
[2018-12-06] MEDS: THROAT LOZENGES-BENZOCAINE/MENTH/CETYLPYRD CL LOZENGES MM PRN ×2 (10:19→20:50)
[2018-12-06] MEDS: ACETYLCYSTEINE 100MG/ML 10% VIAL 4ML INH SCH (16:44)
[2018-12-06] MEDS: LEVOFLOXACIN 500MG PREMIX 100 ML IV SCH (17:39)
[2018-12-06] MEDS: MORPHINE SULFATE 10MG/5ML ORAL SOLN UDC PO PRN (17:41)
[2018-12-06] MEDS: AZITHROMYCIN 500 MG TABLET PO SCH (17:41)
[2018-12-07] VITALS (12 sets, daily range): BP systolic 108–137; BP diastolic 52–77
[2018-12-07] MEDS: IPRATROPIUM/ALBUTEROL 0.5-3(2.5)MG/3ML NEB HHN SCH ×6 (00:30→20:30)
[2018-12-07] MEDS: ACETYLCYSTEINE 100MG/ML 10% VIAL 4ML INH SCH ×2 (00:30→08:51)
[2018-12-07] MEDS: METHYLPREDNISOLONE SOD SUCC 125 MG/2 ML VIAL IV SCH ×3 (01:02→12:48)
[2018-12-07] MEDS: THROAT LOZENGES-BENZOCAINE/MENTH/CETYLPYRD CL LOZENGES MM PRN (06:02)
[2018-12-07] MEDS: DIPHENHYDRAMINE 50MG/ML VIAL IV PRN (06:02)
[2018-12-07] MEDS: BLOOD SUGAR DIAGNOSTIC STRIP TEST SCH ×4 (07:56→21:12)
[2018-12-07] MEDS: ENOXAPARIN 40MG/0.4ML SYR SUBCUT SCH (09:00)
[2018-12-07] MEDS: AZITHROMYCIN 500 MG TABLET PO SCH (09:52)
[2018-12-07] MEDS: OSELTAMIVIR 75MG CAPSULE PO SCH ×2 (09:52→21:03)
[2018-12-07] MEDS: ASPIRIN 81MG EC TABLET PO SCH (09:52)
[2018-12-07] MEDS: AMLODIPINE 5MG TABLET PO SCH ×2 (09:52→17:00)
[2018-12-07] MEDS: FLUTICASONE PROPIONATE 50MCG/SPRAY BOTTLE BOTHNSTRLS SCH (09:53)
[2018-12-07] MEDS: INSULIN LISPRO 100 UNITS/ML SUBCUT SCH ×4 (09:55→21:22)
[2018-12-07] MEDS: GUAIFENESIN 200MG/10ML SUGAR FREE UDC PO PRN (09:57)
[2018-12-07 10:16] LABS: PLATELET ESTIMATE NORMAL
[2018-12-07] MEDS ORDERED: PREDNISONE 20MG TABLET PO SCH (13:00)
[2018-12-07] MEDS: GUAIFENESIN/CODEINE 100-10MG/5ML UDC PO PRN ×2 (15:05→21:03)
[2018-12-07] MEDS: LEVOFLOXACIN 500MG PREMIX 100 ML IV SCH (17:29)
[2018-12-07] MEDS: PREDNISONE 20MG TABLET PO SCH (17:29)
[2018-12-08] VITALS (12 sets, daily range): BP systolic 112–129; BP diastolic 57–68
[2018-12-08] MEDS: IPRATROPIUM/ALBUTEROL 0.5-3(2.5)MG/3ML NEB HHN SCH ×7 (00:08→20:16)
[2018-12-08] MEDS: HYDROCODONE/ACETAMINOPHEN 10/325MG TABLET PO PRN ×2 (01:31→23:33)
[2018-12-08] MEDS: INSULIN LISPRO 100 UNITS/ML SUBCUT SCH ×4 (08:00→20:50)
[2018-12-08] MEDS: BLOOD SUGAR DIAGNOSTIC STRIP TEST SCH ×4 (08:15→20:44)
[2018-12-08] MEDS: GUAIFENESIN/CODEINE 100-10MG/5ML UDC PO PRN ×3 (08:57→20:39)
[2018-12-08] MEDS: ASPIRIN 81MG EC TABLET PO SCH (08:59)
[2018-12-08] MEDS: AZITHROMYCIN 500 MG TABLET PO SCH (08:59)
[2018-12-08] MEDS: PREDNISONE 20MG TABLET PO SCH ×3 (08:59→17:44)
[2018-12-08] MEDS: OSELTAMIVIR 75MG CAPSULE PO SCH ×2 (08:59→20:38)
[2018-12-08] MEDS: AMLODIPINE 5MG TABLET PO SCH ×2 (08:59→17:44)
[2018-12-08] MEDS: ENOXAPARIN 40MG/0.4ML SYR SUBCUT SCH (09:01)
[2018-12-08] MEDS: DILTIAZEM HCL 30MG TABLET PO SCH ×2 (17:43→23:36)
[2018-12-08] MEDS: LEVOFLOXACIN 500MG PREMIX 100 ML IV SCH (17:44)
[2018-12-08] MEDS: THROAT LOZENGES-BENZOCAINE/MENTH/CETYLPYRD CL LOZENGES MM PRN (20:52)
[2018-12-09] VITALS (11 sets, daily range): BP systolic 111–140; BP diastolic 55–66
[2018-12-09] MEDS: IPRATROPIUM/ALBUTEROL 0.5-3(2.5)MG/3ML NEB HHN SCH ×7 (00:15→23:54)
[2018-12-09] MEDS: HYDROCODONE/ACETAMINOPHEN 10/325MG TABLET PO PRN (03:28)
[2018-12-09] MEDS: GUAIFENESIN/CODEINE 100-10MG/5ML UDC PO PRN ×2 (03:32→08:14)
[2018-12-09] MEDS: GUAIFENESIN 200MG/10ML SUGAR FREE UDC PO PRN (03:32)
[2018-12-09 05:53] LABS: HEMATOCRIT. 36.6 % (36.0-48.0); HEMOGLOBIN. 11.7 g/dL (12.0-16.0); MEAN CORPUSCULAR HEMOGLOBIN 26.6 pg (28.0-32.0); MEAN CORPUSCULAR VOLUME 83.4 fL (81.0-99.0); MEAN PLATELET VOLUME 8.9 fl (7.4-10.4); PLATELET 367 x1000/uL (130-400); RED BLOOD CELL COUNT 4.38 mill/uL (4.2-5.4); RED CELL DISTRIBUTION WIDTH 20.6 % (11.6-14.6)
[2018-12-09 05:56] LABS: CHLORIDE 98 mEq/L (98-107)
[2018-12-09] MEDS: DILTIAZEM HCL 30MG TABLET PO SCH ×3 (06:40→17:18)
[2018-12-09] MEDS: INSULIN LISPRO 100 UNITS/ML SUBCUT SCH ×4 (08:00→20:56)
[2018-12-09] MEDS: BLOOD SUGAR DIAGNOSTIC STRIP TEST SCH ×4 (08:07→20:36)
[2018-12-09] MEDS: PREDNISONE 20MG TABLET PO SCH ×2 (08:14→17:18)
[2018-12-09] MEDS: ASPIRIN 81MG EC TABLET PO SCH (08:15)
[2018-12-09] MEDS: AZITHROMYCIN 500 MG TABLET PO SCH (08:15)
[2018-12-09] MEDS: AMLODIPINE 5MG TABLET PO SCH ×2 (08:15→17:05)
[2018-12-09] MEDS: OSELTAMIVIR 75MG CAPSULE PO SCH ×2 (08:16→20:29)
[2018-12-09] MEDS: ENOXAPARIN 40MG/0.4ML SYR SUBCUT SCH (09:00)
[2018-12-09] MEDS ORDERED: TERBUTALINE SULFATE 1MG/ML VIAL SUBCUT SCH (12:45)
[2018-12-09] MEDS ORDERED: CEFTRIAXONE 1 G PREMIX 50 ML IV SCH (14:00)
[2018-12-09 14:14] LABS: PLATELET ESTIMATE NORMAL
[2018-12-09 14:48] LABS: BG BASE EXCESS 9.4 mmol/L (-2.0-2.0); BG DEOXYHEMOGLOBIN 7.6 % (0.0-5.0); BG FRACTION INSPIRED OXYGEN 28; BG HCO3 ACT 37.2 mmol/L (22.0-26.0); BG METHEMOGLOBIN 0.2 % (0.0-1.5); BG OXYGEN SATURATION 92.3 % (92.0-98.5); BG OXYHEMOGLOBIN 91.2 % (94.0-97.0); BG PCO2 66.2 mmHg (35.0-45.0); BG PH 7.368 (7.350-7.450); BG PO2 66.3 mmHg (75.0-100.0); BG SAMPLE SITE RIGHT RADIAL; BG TOTAL HEMOGLOBIN 13.2 g/dL (12.0-18.0); BG VENT MODE NASAL CANNULA
[2018-12-09] MEDS: CEFTRIAXONE 1 G PREMIX 50 ML IV SCH (15:14)
[2018-12-09] MEDS: THROAT LOZENGES-BENZOCAINE/MENTH/CETYLPYRD CL LOZENGES MM PRN (17:18)
[2018-12-09] MEDS: DIPHENHYDRAMINE 50MG/ML VIAL IV PRN (20:24)
[2018-12-10] VITALS (13 sets, daily range): BP systolic 120–154; BP diastolic 58–68
[2018-12-10] MEDS: DILTIAZEM HCL 30MG TABLET PO SCH ×4 (00:24→18:54)
[2018-12-10] MEDS: HYDROCODONE/ACETAMINOPHEN 10/325MG TABLET PO PRN ×2 (00:54→08:58)
[2018-12-10] MEDS: IPRATROPIUM/ALBUTEROL 0.5-3(2.5)MG/3ML NEB HHN SCH ×6 (04:08→20:12)
[2018-12-10] MEDS: GUAIFENESIN/CODEINE 100-10MG/5ML UDC PO PRN ×2 (04:12→08:56)
[2018-12-10] MEDS: BLOOD SUGAR DIAGNOSTIC STRIP TEST SCH ×4 (07:30→21:25)
[2018-12-10] MEDS: INSULIN LISPRO 100 UNITS/ML SUBCUT SCH ×4 (08:00→21:24)
[2018-12-10] MEDS: ASPIRIN 81MG EC TABLET PO SCH (08:53)
[2018-12-10] MEDS: AZITHROMYCIN 500 MG TABLET PO SCH (08:56)
[2018-12-10] MEDS: DOCUSATE SODIUM 100MG CAPSULE PO PRN (08:56)
[2018-12-10] MEDS: PREDNISONE 20MG TABLET PO SCH ×2 (08:56→18:54)
[2018-12-10] MEDS: AMLODIPINE 5MG TABLET PO SCH ×2 (08:58→17:00)
[2018-12-10] MEDS: ENOXAPARIN 40MG/0.4ML SYR SUBCUT SCH (09:02)
[2018-12-10] MEDS: OSELTAMIVIR 75MG CAPSULE PO SCH ×2 (09:31→21:24)
[2018-12-10] MEDS: DIPHENHYDRAMINE 50MG/ML VIAL IV PRN ×2 (15:36→23:14)
[2018-12-10] MEDS: CEFTRIAXONE 1 G PREMIX 50 ML IV SCH (15:37)
[2018-12-10] MEDS ORDERED: TERBUTALINE SULFATE 1MG/ML VIAL SUBCUT NR (18:00)
[2018-12-11] VITALS (9 sets, daily range): BP systolic 111–141; BP diastolic 54–69
[2018-12-11] MEDS: IPRATROPIUM/ALBUTEROL 0.5-3(2.5)MG/3ML NEB HHN SCH ×7 (00:05→20:27)
[2018-12-11] MEDS: DILTIAZEM HCL 30MG TABLET PO SCH ×5 (00:25→23:30)
[2018-12-11] MEDS: INSULIN LISPRO 100 UNITS/ML SUBCUT SCH ×4 (08:00→20:44)
[2018-12-11] MEDS: BLOOD SUGAR DIAGNOSTIC STRIP TEST SCH ×4 (08:06→20:43)
[2018-12-11] MEDS: OSELTAMIVIR 75MG CAPSULE PO SCH ×2 (08:47→20:16)
[2018-12-11] MEDS: ENOXAPARIN 40MG/0.4ML SYR SUBCUT SCH (08:48)
[2018-12-11] MEDS: AMLODIPINE 5MG TABLET PO SCH ×2 (08:49→17:00)
[2018-12-11] MEDS: AZITHROMYCIN 500 MG TABLET PO SCH (08:50)
[2018-12-11] MEDS: ASPIRIN 81MG EC TABLET PO SCH (08:50)
[2018-12-11] MEDS: PREDNISONE 20MG TABLET PO SCH ×2 (08:50→17:09)
[2018-12-11] MEDS: GUAIFENESIN/CODEINE 100-10MG/5ML UDC PO PRN ×2 (09:40→20:16)
[2018-12-11 11:30] LABS: BG BASE EXCESS 13.2 mmol/L (-2.0-2.0); BG CARBOXYHEMOGLOBIN 0.7 % (0.5-1.5); BG DEOXYHEMOGLOBIN 4.5 % (0.0-5.0); BG FRACTION INSPIRED OXYGEN 28; BG HCO3 ACT 40.7 mmol/L (22.0-26.0); BG METHEMOGLOBIN 0.1 % (0.0-1.5); BG OXYGEN SATURATION 95.5 % (92.0-98.5); BG OXYHEMOGLOBIN 94.7 % (94.0-97.0); BG PCO2 66.9 mmHg (35.0-45.0); BG PH 7.402 (7.350-7.450); BG PO2 81.3 mmHg (75.0-100.0); BG SAMPLE SITE RIGHT BRACHIAL; BG TOTAL HEMOGLOBIN 12.3 g/dL (12.0-18.0); BG VENT MODE NASAL CANNULA
[2018-12-11] MEDS ORDERED: TERBUTALINE SULFATE 1MG/ML VIAL SUBCUT NR (12:30)
[2018-12-11] MEDS: CEFTRIAXONE 1 G PREMIX 50 ML IV SCH (15:31)
[2018-12-11] MEDS: HYDROCODONE/ACETAMINOPHEN 10/325MG TABLET PO PRN (22:54)
[2018-12-12] VITALS (9 sets, daily range): BP systolic 128–145; BP diastolic 52–76
[2018-12-12] MEDS: IPRATROPIUM/ALBUTEROL 0.5-3(2.5)MG/3ML NEB HHN SCH ×5 (00:19→16:14)
[2018-12-12] MEDS: THROAT LOZENGES-BENZOCAINE/MENTH/CETYLPYRD CL LOZENGES MM PRN (01:50)
[2018-12-12] MEDS: GUAIFENESIN/CODEINE 100-10MG/5ML UDC PO PRN ×2 (06:25→12:20)
[2018-12-12] MEDS: DILTIAZEM HCL 30MG TABLET PO SCH ×2 (06:25→12:20)
[2018-12-12] MEDS: INSULIN LISPRO 100 UNITS/ML SUBCUT SCH ×2 (08:00→12:01)
[2018-12-12] MEDS: BLOOD SUGAR DIAGNOSTIC STRIP TEST SCH ×2 (08:25→12:01)
[2018-12-12] MEDS: AZITHROMYCIN 500 MG TABLET PO SCH (08:28)
[2018-12-12] MEDS: AMLODIPINE 5MG TABLET PO SCH (08:28)
[2018-12-12] MEDS: PREDNISONE 20MG TABLET PO SCH (08:28)
[2018-12-12] MEDS: ASPIRIN 81MG EC TABLET PO SCH (08:29)
[2018-12-12] MEDS: ENOXAPARIN 40MG/0.4ML SYR SUBCUT SCH (08:29)
[2018-12-12] MEDS: CEFTRIAXONE 1 G PREMIX 50 ML IV SCH (15:42)
== END 2018-12-12 17:06 | disposition home or self-care (01) | DRG 140 ==
LOC: ER 16:07 → 5EST 19:36 → EDBEDREQ 19:38 → EDBEDREQSVC 19:38 → ENRESERV 20:09
PROVIDERS: ADMIT Internal Medicine; ATTEND Internal Medicine
PROC: 5A09357 Assistance with Respiratory Ventilation, Less than 24 Consecutive Hours, Continuous Positive Airway Pressure (ICD-10-PCS; principal; 2018-12-01)
PROC: 5A09357 Assistance with Respiratory Ventilation, Less than 24 Consecutive Hours, Continuous Positive Airway Pressure (ICD-10-PCS; 2018-12-02)
PROC: 5A09357 Assistance with Respiratory Ventilation, Less than 24 Consecutive Hours, Continuous Positive Airway Pressure (ICD-10-PCS; 2018-12-11)
DX: J44.1 Chronic obstructive pulmonary disease with (acute) exacerbation (principal); J96.20 Acute and chronic respiratory failure, unspecified whether with hypoxia or hypercapnia; J69.0 Pneumonitis due to inhalation of food and vomit; I27.20 Pulmonary hypertension, unspecified; E87.2 Acidosis; Z99.81 Dependence on supplemental oxygen; I48.91 Unspecified atrial fibrillation; E46 Unspecified protein-calorie malnutrition; J44.0 Chronic obstructive pulmonary disease with (acute) lower respiratory infection; J10.1 Influenza due to other identified influenza virus with other respiratory manifestations; E78.5 Hyperlipidemia, unspecified; I10 Essential (primary) hypertension; J20.9 Acute bronchitis, unspecified; Z79.899 Other long term (current) drug therapy; Z96.653 Presence of artificial knee joint, bilateral; Z87.891 Personal history of nicotine dependence; Z68.29 Body mass index [BMI] 29.0-29.9, adult
CPT/HCPCS: 36415; 36600; 71045; 80048; 80061; 80305; 82375; 82550; 82553; 82805; 82962; 83605; 83735; 83880; 84439; 84443; 84484; 85379; 87804; 93005; 93306; 93970; 94640; 94660; 96365; 96368; 96375; 99291; C1893; G0482; J0696; J1200; J1650; J1815; J1956; J2060; J2270; J2405; J2930; J3105; J3475; J7050; J7512; J7608; J7620

== ENCOUNTER 2019-08-13 17:49 | Emergency (ER) | payer MEDICARE, OTHER ==
[~2019-08-13] VITALS: Ht 152.4 cm; Wt 62.0 kg
[2019-08-13] MEDS ORDERED: ALBUTEROL (0.083%) 2.5MG/3ML NEB HHN STA (18:01)
[2019-08-13 19:21] LABS: BASOPHILS % 1.3 % (0.0-2.0); EOSINOPHILS % 0.5 % (0.0-5.0); HEMATOCRIT. 35.7 % (36.0-48.0); HEMOGLOBIN. 11.3 g/dL (12.0-16.0); MEAN CORPUSCULAR HEMOGLOBIN 26.6 pg (28.0-32.0); MEAN CORPUSCULAR VOLUME 83.9 fL (81.0-99.0); MONOCYTES % 8.9 % (2.0-8.0); NEUTROPHILS % 70.3 % (40.0-76.0); PLATELET 302 x1000/uL (130-400); RED BLOOD CELL COUNT 4.26 mill/uL (4.2-5.4); RED CELL DISTRIBUTION WIDTH 18.5 % (11.6-14.6)
[2019-08-13 19:24] LABS: CHLORIDE 106 mEq/L (98-107)
[2019-08-13] MEDS ORDERED: METHYLPREDNISOLONE SOD SUCC 125 MG/2 ML VIAL IV NR (19:45)
[2019-08-13] MEDS ORDERED: POTASSIUM CHLORIDE 20MEQ TABLET SR PO NR (19:45)
[2019-08-13] MEDS ORDERED: ASPIRIN 81MG TABLET PO NR (19:45)
[2019-08-13] MEDS ORDERED: HEPARIN 5000 UNITS/ML VIAL IV ONE (20:30)
[2019-08-13 20:32] VITALS: BP 141/67
== END 2019-08-13 21:12 ==
LOC: ER 17:49
DX: R06.02 Shortness of breath (principal); J44.9 Chronic obstructive pulmonary disease, unspecified; I51.9 Heart disease, unspecified; Z96.659 Presence of unspecified artificial knee joint; Z98.890 Other specified postprocedural states
CPT/HCPCS: 36415; 71045; 80053; 83880; 84484; 85025; 93005; 94640; 96374; 96375; 99291; J1644; J2930; J7611; Z7610

== ENCOUNTER 2021-07-12 10:25 | Inpatient (IN) | payer MEDICARE, OTHER ==
[~2021-07-12] VITALS: Ht 162.6 cm; Wt 94.3 kg
[~2021-07-12 10:25] MED LIST changes: -ALBUTEROL MDI IH; +ASPI-1406 PO; +GUAI600T26 MT; +IRON1CAP35 MT
[2021-07-12] MEDS ORDERED: MORPHINE SULFATE 4 MG/ML CPJ (NOT FOR IM USE) IV STA (11:29)
[2021-07-12] MEDS ORDERED: ALBUTEROL (0.083%) 2.5MG/3ML NEB HHN STA (11:29)
[2021-07-12] MEDS ORDERED: ONDANSETRON HCL 4MG/2ML INJ IV STA (11:29)
[2021-07-12] MEDS ORDERED: METHYLPREDNISOLONE SOD SUCC 125 MG/2 ML VIAL IV STA (11:29)
[2021-07-12] MEDS ORDERED: MAGNESIUM 2 G PREMIX 50 ML IV STA (11:29)
[2021-07-12] MEDS ORDERED: IPRATROPIUM BROMIDE (0.02%) 0.5MG/2.5ML NEB HHN STA (11:29)
[2021-07-12] MEDS ORDERED: PIPERACILLIN/TAZ 3.375G PREMIX 50 ML IV ONE (11:30)
[2021-07-12] MEDS ORDERED: VANCOMYCIN 1 G PREMIX 200 ML IV ONE (11:30)
[2021-07-12 12:18] LABS: BASOPHILS % 0.6 % (0.0-2.0); EOSINOPHILS % 2.7 % (0.0-5.0); HEMATOCRIT. 35.2 % (36.0-48.0); HEMOGLOBIN. 11.4 g/dL (12.0-16.0); LYMPHOCYTES % 13.5 % (20.0-50.0); MEAN CORPUSCULAR HEMOGLOBIN 27.5 pg (28.0-32.0); MEAN CORPUSCULAR VOLUME 84.7 fL (81.0-99.0); NEUTROPHILS % 74.2 % (40.0-76.0); PLATELET 336 x1000/uL (130-400); RED BLOOD CELL COUNT 4.16 mill/uL (4.2-5.4); RED CELL DISTRIBUTION WIDTH 18.6 % (11.6-14.6)
[2021-07-12 12:24] LABS: CHLORIDE 106 mEq/L (98-107)
[2021-07-12 12:48] LABS: PROTHROMBIN TIME 10.3 sec (9.6-11.0)
[2021-07-12 20:42] LABS: CLARITY URINE TURBID (CLEAR); COLOR URINE YELLOW (YELLOW); KETONES URINE TRACE (NEGATIVE); LEUKOCYTE ESTERASE URINE NEGATIVE (NEGATIVE); NITRITE URINE NEGATIVE (NEGATIVE); OCCULT BLOOD URINE NEGATIVE (NEGATIVE); PH URINE 5.5 (4.5-8.0); PROTEIN URINE 2+ (NEGATIVE); SPECIFIC GRAVITY URINE 1.032 (1.005-1.030)
[2021-07-12 21:15] LABS: *AMPHETAMINES SCREEN URINE NEGATIVE (NEGATIVE); *BARBITURATES SCREEN URINE NEGATIVE (NEGATIVE); CANNABINOID URINE SCREEN NEGATIVE (NEGATIVE); METHADONE URINE SCREEN NEGATIVE (NEGATIVE); OPIATES URINE SCREEN PRESUMTIVE POSITIVE (NEGATIVE); PHENCYCLIDINE URINE SCREEN NEGATIVE (NEGATIVE)
[2021-07-12 21:16] LABS: *BENZODIAZEPINES SCREEN URINE NEGATIVE (NEGATIVE); *COCAINE SCREEN URINE NEGATIVE (NEGATIVE)
[2021-07-12 22:00] VITALS: BP 137/108
[2021-07-12 23:21] VITALS: BP 137/108
[2021-07-13] VITALS (11 sets, daily range): BP systolic 135–172; BP diastolic 63–83
[2021-07-13] MEDS: GUAIFENESIN 600MG ER TABLET PO SCH ×3 (00:04→20:06)
[2021-07-13] MEDS: METHYLPREDNISOLONE SOD SUCC 40 MG/ML VIAL IV SCH ×4 (00:05→20:06)
[2021-07-13] MEDS: MORPHINE SULFATE 2 MG/ML CPJ (NOT FOR IM USE) IV PRN ×2 (00:05→04:46)
[2021-07-13] MEDS: IPRATROPIUM/ALBUTEROL 0.5-3(2.5)MG/3ML NEB HHN SCH ×4 (04:19→20:36)
[2021-07-13 06:27] LABS: HEMATOCRIT. 32.3 % (36.0-48.0); HEMOGLOBIN. 10.4 g/dL (12.0-16.0); MEAN CORPUSCULAR HEMOGLOBIN 27.2 pg (28.0-32.0); MEAN CORPUSCULAR VOLUME 84.5 fL (81.0-99.0); MEAN PLATELET VOLUME 9.4 fl (7.4-10.4); PLATELET 318 x1000/uL (130-400); RED BLOOD CELL COUNT 3.83 mill/uL (4.2-5.4); RED CELL DISTRIBUTION WIDTH 17.2 % (11.6-14.6)
[2021-07-13 06:38] LABS: CHLORIDE 101 mEq/L (98-107)
[2021-07-13] MEDS: FAMOTIDINE 20MG/2ML VIAL IV SCH ×2 (08:06→17:49)
[2021-07-13] MEDS: LEVOFLOXACIN 500MG PREMIX 100 ML IV SCH (08:07)
[2021-07-13] MEDS: BUDESONIDE 0.5MG/2ML NEB HHN SCH ×2 (08:34→20:36)
[2021-07-13] MEDS ORDERED: POTASSIUM CHLORIDE 20MEQ TABLET SR PO SCH (08:45)
[2021-07-13] MEDS ORDERED: ENOXAPARIN 40MG/0.4ML SYR SUBCUT SCH (09:00)
[2021-07-13] MEDS ORDERED: ENOXAPARIN 30MG/0.3ML SYR SUBCUT SCH ×2 (09:00)
[2021-07-13] MEDS ORDERED: NALOXONE HCL 0.4MG/ML VIAL IV PRN (10:30)
[2021-07-13] MEDS: HYDROCODONE/ACETAMINOPHEN 5/325MG TABLET PO PRN ×2 (11:03→20:06)
[2021-07-13] MEDS ORDERED: VANCOMYCIN 1500MG in DEXTROSE 5% WATER 250ML IV SCH (12:00)
[2021-07-13] MEDS ORDERED: PHENOL/SODIUM PHENOLATE 1.4% SRPAY 177ML MM SCH (13:00)
[2021-07-13 13:58] LABS: PLATELET ESTIMATE NORMAL
[2021-07-13] MEDS: MUPIROCIN 2% OINT 22GM NS SCH ×2 (14:51→20:06)
[2021-07-13] MEDS: THROAT LOZENGES-BENZOCAINE/MENTH/CETYLPYRD CL LOZENGES MM PRN (17:49)
[2021-07-13] MEDS: ENOXAPARIN 30MG/0.3ML SYR SUBCUT SCH ×2 (20:07→20:20)
[2021-07-14] VITALS (11 sets, daily range): BP systolic 116–140; BP diastolic 50–74
[2021-07-14] MEDS: VANCOMYCIN 750 MG PREMIX 150 ML IV SCH ×3 (00:09→22:02)
[2021-07-14] MEDS: HYDROCODONE/ACETAMINOPHEN 5/325MG TABLET PO PRN ×4 (01:34→23:32)
[2021-07-14] MEDS: THROAT LOZENGES-BENZOCAINE/MENTH/CETYLPYRD CL LOZENGES MM PRN ×2 (01:39→23:35)
[2021-07-14] MEDS: IPRATROPIUM/ALBUTEROL 0.5-3(2.5)MG/3ML NEB HHN SCH ×4 (04:40→20:53)
[2021-07-14] MEDS: METHYLPREDNISOLONE SOD SUCC 40 MG/ML VIAL IV SCH ×3 (05:56→23:34)
[2021-07-14] MEDS: BUDESONIDE 0.5MG/2ML NEB HHN SCH ×2 (08:53→20:54)
[2021-07-14] MEDS: ENOXAPARIN 30MG/0.3ML SYR SUBCUT SCH ×2 (09:00→21:00)
[2021-07-14] MEDS: FAMOTIDINE 20MG/2ML VIAL IV SCH ×2 (09:00→17:00)
[2021-07-14] MEDS: LEVOFLOXACIN 500MG PREMIX 100 ML IV SCH (09:14)
[2021-07-14] MEDS: GUAIFENESIN 600MG ER TABLET PO SCH ×2 (09:14→22:01)
[2021-07-14] MEDS: MUPIROCIN 2% OINT 22GM NS SCH ×2 (10:07→22:01)
[2021-07-14] MEDS: FLUTICASONE PROPIONATE 50MCG/SPRAY BOTTLE BOTHNSTRLS SCH (14:02)
[2021-07-15] VITALS (10 sets, daily range): BP systolic 121–148; BP diastolic 61–86
[2021-07-15] MEDS: IPRATROPIUM/ALBUTEROL 0.5-3(2.5)MG/3ML NEB HHN SCH ×4 (01:15→20:53)
[2021-07-15] MEDS: METHYLPREDNISOLONE SOD SUCC 40 MG/ML VIAL IV SCH ×3 (06:31→17:54)
[2021-07-15] MEDS: GUAIFENESIN 600MG ER TABLET PO SCH ×2 (08:46→21:44)
[2021-07-15] MEDS: MUPIROCIN 2% OINT 22GM NS SCH ×2 (08:47→21:42)
[2021-07-15] MEDS: FLUTICASONE PROPIONATE 50MCG/SPRAY BOTTLE BOTHNSTRLS SCH (08:47)
[2021-07-15] MEDS: ENOXAPARIN 30MG/0.3ML SYR SUBCUT SCH ×2 (08:47→21:00)
[2021-07-15] MEDS: FAMOTIDINE 20MG TABLET PO SCH ×2 (08:47→17:54)
[2021-07-15] MEDS: LEVOFLOXACIN 500MG PREMIX 100 ML IV SCH (08:56)
[2021-07-15 09:10] LABS: CHLORIDE 100 mEq/L (98-107)
[2021-07-15] MEDS: VANCOMYCIN 750 MG PREMIX 150 ML IV SCH (10:32)
[2021-07-15] MEDS: BUDESONIDE 0.5MG/2ML NEB HHN SCH (13:42)
[2021-07-15] MEDS: ONDANSETRON HCL 4MG/2ML INJ IV PRN (18:18)
[2021-07-15] MEDS: THROAT LOZENGES-BENZOCAINE/MENTH/CETYLPYRD CL LOZENGES MM PRN (21:43)
[2021-07-15] MEDS: HYDROCODONE/ACETAMINOPHEN 5/325MG TABLET PO PRN (21:44)
[2021-07-15] MEDS: VANCOMYCIN 1 G PREMIX 200 ML IV SCH (21:45)
[2021-07-16] MEDS: METHYLPREDNISOLONE SOD SUCC 40 MG/ML VIAL IV SCH ×2 (00:22→05:06)
[2021-07-16] MEDS: ONDANSETRON HCL 4MG/2ML INJ IV PRN (00:23)
[2021-07-16 02:23] VITALS: BP 144/84
[2021-07-16 08:00] VITALS: BP 116/62
[2021-07-16] MEDS: ENOXAPARIN 30MG/0.3ML SYR SUBCUT SCH ×2 (09:18→09:21)
[2021-07-16 09:19] VITALS: BP 116/62
[2021-07-16] MEDS: HYDROCODONE/ACETAMINOPHEN 5/325MG TABLET PO PRN (09:19)
[2021-07-16] MEDS: FAMOTIDINE 20MG TABLET PO SCH (09:19)
[2021-07-16] MEDS ORDERED: LIDOCAINE HCL/PF 1% 2ML VIAL INL ONE (09:30)
[2021-07-16] MEDS ORDERED: LIDOCAINE HCL/PF 1% 10 MG/ML 5ML VIAL INL NR (09:30)
[2021-07-16] MEDS ORDERED: LIDOCAINE 2G PREMIX 500 ML IV PRN (09:30)
[2021-07-16] MEDS: VANCOMYCIN 1 G PREMIX 200 ML IV SCH (09:38)
[2021-07-16] MEDS: LEVOFLOXACIN 500MG PREMIX 100 ML IV SCH (09:38)
[2021-07-16] MEDS: MUPIROCIN 2% OINT 22GM NS SCH (09:40)
[2021-07-16] MEDS: FLUTICASONE PROPIONATE 50MCG/SPRAY BOTTLE BOTHNSTRLS SCH (09:40)
[2021-07-16] MEDS: GUAIFENESIN 600MG ER TABLET PO SCH (09:40)
[2021-07-16] MEDS ORDERED: P20 MT (09:42)
== END 2021-07-16 14:40 | disposition home or self-care (01) | DRG 385 ==
LOC: ER 10:25 → EDBEDREQTM 14:08 → EDBEDREQ 14:08 → EDBEDREQSVC 14:09 → MICUSO 18:02 → 5EST 20:16
PROVIDERS: ADMIT Internal Medicine; ATTEND Internal Medicine
PROC: 0X950ZZ Drainage of Left Axilla, Open Approach (ICD-10-PCS; principal; 2021-07-16)
DX: N61.1 Abscess of the breast and nipple (principal); J96.21 Acute and chronic respiratory failure with hypoxia; E44.1 Mild protein-calorie malnutrition; Z99.81 Dependence on supplemental oxygen; J44.1 Chronic obstructive pulmonary disease with (acute) exacerbation; I10 Essential (primary) hypertension; E66.01 Morbid (severe) obesity due to excess calories; D64.9 Anemia, unspecified; Z96.659 Presence of unspecified artificial knee joint; L02.412 Cutaneous abscess of left axilla; Z82.49 Family history of ischemic heart disease and other diseases of the circulatory system; Z68.35 Body mass index [BMI] 35.0-35.9, adult; Z87.891 Personal history of nicotine dependence
CPT/HCPCS: 36415; 71045; 80048; 80053; 80202; 80305; 81003; 82040; 83605; 83880; 84134; 84145; 84484; 85025; 87070; 87077; 87186; 93005; 94644; 99291; C1893; J1650; J1956; J2270; J2405; J2543; J2920; J2930; J3370; J3475; J3490; J7060; J7626